=== PATIENT | female | born 1990 | race Caucasian/White ===

== ENCOUNTER 2017-07-09 17:17 | Outpatient (CLI) | payer OTHER ==
[2017-07-09 17:37] LABS: BASOPHILS % (AUTO) 0.6 %; EOSINOPHILS # (AUTO) 0.1 10^3/uL (0.0-0.7); EOSINOPHILS % (AUTO) 1.1 %; HCT - HEMATOCRIT 40.6 % (37.0-47.0); HGB - HEMOGLOBIN 13.5 g/dL (12.0-16.0); LYMPHOCYTES # (AUTO) 2.8 10^3/uL (1.5-3.5); LYMPHOCYTES % (AUTO) 33.7 %; MEAN CORPUSCULAR HEMOGLOBIN 29.3 pg (27.0-31.0); MEAN CORPUSCULAR HGB CONC 33.2 g/dL (32.0-36.0); MEAN CORPUSCULAR VOLUME 88.1 fL (81.0-99.0); MEAN PLATELET VOLUME 7.9 fL (7.9-10.8); MONOCYTES # (AUTO) 0.6 10^3/uL (0.0-1.0); MONOCYTES % (AUTO) 6.9 %; NEUTROPHILS # (AUTO) 4.8 10^3/uL (1.5-6.6); NEUTROPHILS % (AUTO) 57.7 %; RED BLOOD COUNT 4.61 10^6/uL (4.20-5.40); UNCORRECTED WHITE BLOOD COUNT 8.3 x10^3/uL; WHITE BLOOD COUNT 8.3 x10^3/uL (4.8-10.8)
== END 2017-07-09 17:18 | disposition home or self-care (01) ==
LOC: LAB 17:17
PROVIDERS: ATTEND Registered Nurse
DX: O02.1 Missed abortion (principal)
CPT/HCPCS: 36415; 84144; 84702; 85025; 86850; 86900; 86901

== ENCOUNTER 2017-07-10 18:23 | Observation (INO) | payer OTHER ==
[~2017-07-10 18:23] MED LIST: LIDOCAINE-MPF 2% 5 ML VIAL IM ONE; MIDAZOLAM 2 MG/2 ML VIAL IVP ONE; PROPOFOL 200 MG/20 ML VIAL IVP ONE; fentaNYL 100 MCG/2 ML VIAL IVP ONE
[2017-07-10] MEDS ORDERED: SODIUM CHLORIDE 0.9% 1,000 ML IV ONE ×6 (18:32→20:31)
[2017-07-10] MEDS ORDERED: ONDANSETRON 4 MG/2 ML VIAL IVP STA (18:33)
--- NOTE | 2017-07-10 18:33 | ED Physician Documentation ---
PD HPI FEMALE - Stated complaint Stated Complaint: FEMALE - History obtained from History obtained from: Patient, Family - History of Present Illness Timing - onset: Today Timing - duration: Hours Timing - details: Abrupt onset (she was seen by [facility] with early of 10 weeks by dates but U/S showing IUP of 6 weeks size without FHB, c/w iufd. Was given dose misoprostol today to induce cervical dilation and promote completion of miscarriage. She says she had onset of brisk vaginal bleeding about noon, soaking 1-2 pads hourly and feeling generally weak, nauseated, and some cramping pains. Talked with provider and referred to ED to meet with Dr. Duran for presumed D&C.) Associated symptoms: Pelvic pain, Vaginal bleeding. No: Fever, Vaginal discharge, Genital sore/lesion Contributing factors: (with IUFD in first trimester.) Similar symptoms before: Has not had sx before Recently seen: Clinic Review of Systems Constitutional: denies: Fever, Chills Nose: denies: Rhinorrhea / runny nose, Congestion Throat: denies: Sore throat Cardiac: denies: Chest pain / pressure Respiratory: denies: Dyspnea, Cough GI: reports: Abdominal Pain, Nausea. denies: Vomiting : reports: Vaginal bleeding. denies: Discharge PD PAST MEDICAL HISTORY - Past Medical History Cardiovascular: None Respiratory: None Neuro: None Endocrine/Autoimmune: None - Allergies Allergies/Adverse Reactions: Allergies Allergy/AdvReac Type Severity Reaction Status Date / Time No Known Drug Allergies Allergy Verified 07/10/17 18:46 - Social History Smoking Status: Never smoker PD ED PE NORMAL - Vitals Vital signs reviewed: Yes - General General: Alert and oriented X 3, Well developed/nourished, Other (appears pale, weak, and in some discomfort. ) - HEENT HEENT: Pharynx benign - Neck Neck: Supple, no meningeal sign, No adenopathy - Cardiac Cardiac: RRR (tachycardic), No murmur - Respiratory Respiratory: Clear bilaterally - Abdomen Abdomen: Normal bowel sounds, Soft, Non distended, No organomegaly, Other ( tender in lower abd suprapubic area. ) - Female Female : Deferred (to Dr. Duran) - Rectal Rectal: Deferred - Back Back: No CVA TTP - Derm Derm: Warm and dry. No: Normal color (pale) - Extremities Extremities: No tenderness to palpate, Normal ROM s pain Results - Vitals Vitals: Vital Signs - 24 hr 07/10/17 07/10/17 07/10/17 18:39 20:31 20:35 Temperature 36.7 C Heart Rate 97 Respiratory 18 Rate Blood Pressure 110/62 O2 Saturation 100 100 100 07/10/17 07/10/17 20:40 20:45 Temperature Heart Rate Respiratory Rate Blood Pressure O2 Saturation 100 97 Oxygen O2 Source Room air - Labs Labs: Laboratory Tests 07/10/17 07/10/17 07/10/17 18:35 18:35 18:35 WBC 8.5 RBC 4.57 Hgb 13.5 Hct 40.8 MCV 89.4 MCH 29.5 MCHC 33.0 RDW 13.3 Plt Count 210 MPV 8.1 Neut # 6.7 H Lymph # 1.3 L Harvey # 0.4 Eos # 0.1 Baso # 0.0 Absolute Nucleated RBC 0.00 Nucleated RBC % 0.0 Sodium 136 Potassium 3.4 L Chloride 100 L Carbon Dioxide 25 Anion Gap 11.0 BUN 13 Creatinine 0.7 Estimated GFR (MDRD) 100 Glucose 140 H Calcium 9.1 Total Bilirubin 0.8 AST 21 ALT 18 Alkaline Phosphatase 45 Total Protein 7.0 Albumin 4.4 Globulin 2.6 Albumin/Globulin Ratio 1.7 Lipase 26 Blood Type O POSITIVE Antibody Screen NEGATIVE Crossmatch IS Only See Detail PD MEDICAL DECISION MAKING - ED course Complexity details: reviewed results, considered differential (Patient appears weak and pale, presume from acute blood loss and some pain. Vitals are slightly tachy but adequate BP. ), d/w patient, d/w product safety consultant (Dr. Duran, [employer]) Departure - Departure Disposition: ED Transfer to [facility] Clinical Impression: Vaginal bleeding affecting early , IUFD (intrauterine ), Generalized weakness Condition: Stable Record reviewed to determine appropriate education?: Yes Discharge Date/Time: 07/10/17 19:41
[2017-07-10 18:48] LABS: BASOPHILS % (AUTO) 0.4 %; EOSINOPHILS # (AUTO) 0.1 10^3/uL (0.0-0.7); EOSINOPHILS % (AUTO) 0.7 %; HGB - HEMOGLOBIN 13.5 g/dL (12.0-16.0); LYMPHOCYTES # (AUTO) 1.3 10^3/uL (1.5-3.5); LYMPHOCYTES % (AUTO) 15.4 %; MEAN CORPUSCULAR HEMOGLOBIN 29.5 pg (27.0-31.0); MEAN CORPUSCULAR VOLUME 89.4 fL (81.0-99.0); MEAN PLATELET VOLUME 8.1 fL (7.9-10.8); MONOCYTES # (AUTO) 0.4 10^3/uL (0.0-1.0); MONOCYTES % (AUTO) 4.2 %; NEUTROPHILS # (AUTO) 6.7 10^3/uL (1.5-6.6); NEUTROPHILS % (AUTO) 79.3 %; PLT - PLATELET COUNT 210 10^3/uL (130-450); RED BLOOD COUNT 4.57 10^6/uL (4.20-5.40); RED CELL DISTRIBUTION WIDTH 13.3 % (12.0-15.0); WHITE BLOOD COUNT 8.5 x10^3/uL (4.8-10.8)
[2017-07-10] MEDS ORDERED: LACTATED RINGERS 1,000 ML IV ONE ×6 (18:51→21:30)
[2017-07-10 18:59] LABS: ALBUMIN 4.4 g/dL (3.2-5.5); ALBUMIN/GLOBULIN RATIO 1.7 (1.0-2.2); BILIRUBIN,TOTAL 0.8 mg/dL (0.2-1.0); CALCIUM 9.1 mg/dL (8.5-10.3); CREATININE 0.7 mg/dL (0.4-1.0)
[2017-07-10] MEDS ORDERED: TRANEXAMIC ACID 1,000 MG in SODIUM CHLORIDE 0.9% 100ML 100 ML IV STA (19:24)
[2017-07-10] MEDS ORDERED: PROPOFOL 200 MG/20 ML VIAL IVP ONE (19:42)
[2017-07-10] MEDS ORDERED: CARBOPROST TROMETHAMINE 250 MCG/ML AMP IM ONE (19:42)
[2017-07-10] MEDS ORDERED: LIDOCAINE-MPF 2% 5 ML VIAL IM ONE (19:42)
[2017-07-10] MEDS ORDERED: fentaNYL 100 MCG/2 ML VIAL IVP ONE (19:42)
[2017-07-10] MEDS ORDERED: TRANEXAMIC ACID 1,000 MG/10 ML VIAL IV ONE (19:42)
[2017-07-10] MEDS ORDERED: METHYLERGONOVINE 0.2 MG/ML AMP IVP ONE (19:42)
[2017-07-10] MEDS ORDERED: LIDOCAINE 1%-EPI 1:100000 20 ML MDV SUBQ ONE (20:05)
[2017-07-10] MEDS ORDERED: oxyCODONE 5 MG TABLET PO PRN (20:47)
[2017-07-10 21:00] LABS: HGB - HEMOGLOBIN 10.7 g/dL (12.0-16.0); MEAN CORPUSCULAR HEMOGLOBIN 29.2 pg (27.0-31.0); MEAN CORPUSCULAR VOLUME 88.7 fL (81.0-99.0); MEAN PLATELET VOLUME 8.1 fL (7.9-10.8); RED BLOOD COUNT 3.64 10^6/uL (4.20-5.40); RED CELL DISTRIBUTION WIDTH 13.2 % (12.0-15.0); WHITE BLOOD COUNT 10.6 x10^3/uL (4.8-10.8)
[2017-07-10] MEDS: ACETAMINOPHEN 500 MG TABLET PO SCH (21:58)
[2017-07-10] MEDS: LACTATED RINGERS 1,000 ML IV SCH (22:03)
[2017-07-11] MEDS: ACETAMINOPHEN 500 MG TABLET PO SCH (04:47)
[2017-07-11] MEDS: LACTATED RINGERS 1,000 ML IV SCH (04:51)
[2017-07-11 07:50] VITALS: BP 102/48
--- NOTE | 2017-07-11 08:59 | OPERATIVE REPORT ---
Operative Report - General Admit Date: 07/10/17 Procedure Date: 07/10/17 Planned Procedure: Sharp and suction D&C Pre-Op Diagnosis: incomplete AB, Hemorrage, anemia Procedure Performed: Sharp and Suction D&C Post Op Diagnosis: Same - Procedure Note Primary Surgeon: Jair Duran MD Anesthesia Provider: Glory Marion Anesthesia Technique: General ET tube Pathology: POC IV Fluids (mL): 1,500 Estimated Blood Loss (mL): 50 Complications: None
--- NOTE | 2017-07-11 09:03 | PROVIDER PROGRESS NOTE ---
Subjective - General Admit Date: 07/10/17 Procedure Date: 07/10/17 Post Op Days: 1 Procedure Performed: Sharp and suction D&C - Review of Systems General: positive: No symptoms (Pain 07/22). negative: Fever Pulmonary: positive: Other (sore throat) Cardiovascular: positive: No symptoms Genitourinary: positive: No symptoms Objective - Patient Data Reviewed Vital Signs: Yes Vital Signs: Vital Signs x48h Temp Pulse Resp BP Pulse Ox 07/11/17 07:49 36.9 C 81 19 102/48 L 97 07/11/17 04:52 36.7 C 72 18 100/45 L 100 Weight: Weight 07/09/17 07/10/17 07/11/17 23:59 23:59 23:59 Weight (kg) 61.235 kg Intake & Output: Intake and Output Totals x24h 07/09/17 07/10/17 07/11/17 23:59 23:59 23:59 Intake Total 2533.333 1188.333 Output Total 500 550 Balance 2033.333 638.333 - Lab Results Lab Results: 07/11/17 06:00 07/10/17 18:35 Other Lab Results: Lab Results x24hrs 07/11/17 07/10/17 Range/Units 06:00 20:55 WBC 10.6 (4.8-10.8) x10^3/uL RBC 3.64 L (4.20-5.40) 10^6/uL Hgb 9.6 L 10.7 L (12.0-16.0) g/dL Hct 32.3 L (37.0-47.0) % MCV 88.7 (81.0-99.0) fL MCH 29.2 (27.0-31.0) pg MCHC 33.0 (32.0-36.0) g/dL RDW 13.2 (12.0-15.0) % Plt Count 165 (130-450) 10^3/uL MPV 8.1 (7.9-10.8) fL - Current Medications Current Medications: Current Medications Generic Name Dose Route Start Last Admin Trade Name Freq PRN Reason Stop Dose Admin Acetaminophen 1,000 mg 07/10/17 21:00 07/11/17 04:47 Tylenol PO 1,000 mg Q8H ULI Administration Lactated Ringer's 1,000 mls @ 100 mls/hr 07/10/17 21:00 07/11/17 07:32 Lr IV 0 mls/hr .Q10H ULI Infusion - Physical Exam General Appearance: positive: No acute distress, Alert Respiratory: positive: Chest non-tender, No respiratory distress, Breath sounds nml. negative: Wheezes, Rales Cardiovascular: positive: Regular rate & rhythm, No murmur Abdomen: positive: Non-tender, Nml bowel sounds, No distention. negative: Tenderness, Guarding Back: positive: Nml inspection. negative: CVA tenderness (R), CVA tenderness (L ) Extremities: negative: Calf tenderness, Derrick's sign/cords Neurologic/Psychiatric: positive: Oriented x3 Impression/Plan - Problem List Problem List: S/P D&C for incomplete Ab Less anemia than expected. Doing well discussed S/S of infection, Bleeding Call for Bleeding or infection. Pt may take own supply of Motrin if needed. Continue with PNV RTC 1-2 weeks
--- NOTE | 2017-07-11 09:08 | Discharge Plan ---
Discharge Plan Disposition: 01 Home, Self Care Condition: Good Diet: Regular Activity Restrictions: Pelvic rest 4 weeks Shower Restrictions: No Driving Restrictions: No Weight Bearing: Full Weight No Smoking: If you smoke, Please STOP! Call for help. Follow-up with: Jihan Dawson MD [Primary Care Provider] -
--- NOTE | 2017-07-12 22:25 | PREOP HISTORY & PHYSICAL ---
DATE OF SERVICE: 07/10/2017 Physician: Jair Duran MD PATIENT IDENTIFICATION: The patient is a 27-year-old G4, P3 female, who is 9.5 weeks from LMP. CHIEF COMPLAINT: Incomplete . DATE OF ADMISSION AND SURGERY: 07/10/2017 HISTORY OF PRESENT ILLNESS: The patient had an ultrasound yesterday, which showed a 6-week size gestation without any cardiac activity. She was offered options to include those of D and C, as well as Cytotec. She elects to take Cytotec, which she took at roughly 8:30 this morning. She developed bleeding at roughly 1330. She will change a pad on an hourly basis, passing clot and needing to change a pad because these were saturated. She denies any passage of tissue. Later on this evening, she developed lightheadedness with loss of vision as well as hearing, but not loss of consciousness. She also became somewhat diaphoretic. For this reason, she was brought to the ED for evaluation. PAST MEDICAL HISTORY: The patient denies any hypertensive, diabetic or cardiac disease. She has a possible history of irritable bowel syndrome. PAST SURGICAL HISTORY: Colonoscopy at 17 years of age. ALLERGIES: NONE KNOWN. CURRENT MEDICATIONS: 1. Motrin. 2. Tylenol. 3. Cytotec. 4. Zofran. HABITS: The patient denies use of alcohol, tobacco or street drugs. SOCIAL HISTORY: The patient is and lives with spouse and children. She works as a homemaker. OBSTETRICAL HISTORY: Positive for 3 live childbirths. She is currently in the process of having a miscarriage. PHYSICAL EXAMINATION: GENERAL: The patient is a well-developed, well-nourished white female. She appears pale in appearance upon admission. VITAL SIGNS: A pulse of 90 with a blood pressure 110/60, saturating 100%, respirations initially 27. She currently now has a blood pressure of 111/62 with respirations of 19. HEENT: Pupils are equal, round. Extraocular muscles are intact. Mouth is clear. HEART: Regular rate and rhythm without murmurs. RESPIRATORY: Lung prado are clear without rales or wheezes. ABDOMEN: Scaphoid, without evidence of any tenderness. PELVIC: Speculum examination shows a vaginal vault that is filled with blood and clot. There was a single amount of tissue that was removed from the cervix with a ring forceps. The bleeding at this point appears to be continuing. PERIPHERY: She is showing some difficulty initially with poor capillary filling. SKIN: Pale. LABORATORY DATA: White count is 8.5. Hemoglobin is 13.5. Hematocrit is [TIME: 03:02] Platelets are 210. ASSESSMENT AND PLAN: 1. A 27-year-old G4, P3, who is in the process of miscarrying. 2. Incomplete . 3. Hemorrhage. 4. Hypovolemia. PLAN: Will perform sharp and suction D and C. Risks and benefits have been explained to the patient including those, but not limited to bleeding, infection, injury to pelvic organs , which include the uterus, tubes, ovaries, bowel, bladder, and ureters. The patient at this point agrees with sharp and suction D and C. She may need blood transfused at this particular time. TD: 07/10/2017 21:47 MTDD
--- NOTE | 2017-07-17 08:51 | OPERATIVE REPORT ---
DATE OF SERVICE: 07/10/2017 Physician: Jair Duran MD DATE OF SURGERY: 07/10/2017 PREOPERATIVE DIAGNOSIS: Incomplete with anemia and hemorrhage. POSTOPERATIVE DIAGNOSIS: Incomplete with anemia and hemorrhage. NAME OF PROCEDURE: Sharp and suction dilation and curettage. SURGEON: Jair Duran MD ANESTHESIA: General via endotracheal tube. ANESTHESIOLOGIST: Glory Marion CRNA ESTIMATED BLOOD LOSS: 50 mL INTRAVENOUS FLUIDS: 1500 mL COMPLICATIONS: None. FINDINGS: Uterus sounded to roughly 8 cm in length. There was a moderate amount of tissue, which wa s easily removed. PROCEDURE: Following adequate endotracheal anesthesia, the patient was placed in the dorsal lithotom y position in [facility]. At this point, pelvic examination under anesthesia was performed. A weighted speculum was placed in the vagina. The cervix was visualized, grasped with a single-tooth tenaculum. The cervix was already completely dilated, so an 8 mm suction curette was placed. Suction was applied, a t which time it reached its normal at 60 mmHg. The curette was rotated and a moderate amount of tissue was r emoved. The curette was withdrawn gradually as it was being rotated. A second pass was made, which no furthe r tissue was obtained. The endometrial cavity was then sharply curetted in all 4 quadrants. No further tissu e was obtained. The curette was once more placed, and once again no more tissue was removed. The cervix w as released from the single-tooth tenaculum. There was some bleeding from the tenaculum sites. These r esponded to direct pressure. The patient tolerated the procedure well and was taken to the recovery room in s table condition. Sponge and needle counts were correct. TD: 07/17/2017 09:40
== END 2017-07-11 09:25 | disposition home or self-care (01) ==
LOC: ED 18:23 → SDS 19:23 → OBS 20:47
PROVIDERS: ADMIT Obstetrics & Gynecology; ATTEND Obstetrics & Gynecology
PROC: 10D17ZZ Extraction of Products of Conception, Retained, Via Natural or Artificial Opening (ICD-10-PCS; principal; 2017-07-10 19:30)
DX: O03.1 Delayed or excessive hemorrhage following incomplete spontaneous abortion (principal); O03.39 Incomplete spontaneous abortion with other complications; D64.9 Anemia, unspecified
CPT/HCPCS: 36415; 59812; 80053; 83690; 85018; 85025; 85027; 86850; 86900; 86901; 86920; 96374; 99218; 99283; 99284; A9270; J7120

== ENCOUNTER 2018-02-18 12:45 | Outpatient (CLI) | payer OTHER ==
--- NOTE | 2018-02-18 16:25 | Ultrasound Report ---
Procedure Date: 02/18/2018 Accession Number: [id number] / [id number] Procedure: US - OB Detailed Eval CPT Code: FULL RESULT: EXAM: OB Detailed Eval DATE: 02/18/2018 4:09 PM CLINICAL HISTORY: ENCTR FOR SUPRVSN OF NORMAL , 2ND TRIMEST TECHNIQUE: Real-time scanning was performed with equal opportunity representative static images obtained. COMPARISON: None LAST MENSTRUAL PERIOD: 10/01/2017 Clinical Age: 20 weeks 0 days US Age: 20 weeks 1 days EFW Hadlock: 347 grams EFW % Hadlock: % Heart Rate: 135 bpm EDC: 07/08/2018 US EDC: 07/07/2018 BPD Hadlock: 20 weeks 2 days; Mean mm 48 HC Hadlock: 20 weeks 2 days; Mean mm 180 AC Hadlock: 20 weeks 6 days; Mean mm 31 FL Hadlock: 19 weeks 3 days; Mean mm 31 Presentation: Cephalic Placental Location: Posterior Cervical Length: cm Amniotic Fluid: ROCK Subjectively normal cm; MVP 4.2 cm FINDINGS: A single live intrauterine gestation in cephalic presentation with a posterior placenta without evidence of previa and a three-vessel centrally originating cord is identified. The examination is limited in that the following structures were not adequately visualized due to size and position: Profile including nasal bone and the coronal face with nose and lips, cardiac situs, four-chamber view of the heart, left ventricular and right ventricular outflow tracts. Stomach and situs. The following anatomic structures were visualized and appear normal: The intracranial contents, including the ventricles and posterior fossa; the spine; diaphragm; the abdominal contents, including the stomach, the bilateral kidneys, and urinary bladder, as well as a normal 3-vessel cord insertion; 4 limbs. IMPRESSION: Single live intrauterine gestation with an estimated gestational age of 20 weeks and 1 day sonographically. The examination was limited due to size and position. The patient may return for repeat sonography for completion anatomy survey.
== END 2018-02-18 12:46 | disposition home or self-care (01) ==
LOC: DI 12:45
PROVIDERS: ATTEND Registered Nurse
DX: Z34.82 Encounter for supervision of other normal pregnancy, second trimester (principal)
CPT/HCPCS: 76811

== ENCOUNTER 2018-03-04 10:47 | Outpatient (CLI) | payer OTHER ==
--- NOTE | 2018-03-04 15:07 | Ultrasound Report ---
Procedure Date: 03/04/2018 Accession Number: [id number] / [id number] Procedure: US - OB F/U or Repeat CPT Code: FULL RESULT: EXAM: COMPLETE OBSTETRICAL ULTRASOUND EXAM DATE: 03/04/2018 11:53 AM. CLINICAL HISTORY: Follow-up limited anatomic survey. profile, nose and lips, cardiac situs, cardiac anatomy, and stomach not previously well seen. COMPARISON: 02/18/2018. TECHNIQUE: Real-time sonographic evaluation of the fetus performed by the disease case manager rn. Multiple ambulatory service representative static images were saved for review. DATING: Established EGA weeks/days with TOYIN based on source of assigned dating. EGA weeks/days with TOYIN based on LMP/prior ultrasound/other. EGA weeks/days with TOYIN based on the current ultrasound. GENERAL EVALUATION Potter . Cardiac activity: 154 bpm. movement: Present. Presentation: Variable. Placenta: Posterior position. No evidence for previa. Prominent placental poole adjacent to the cord insertion. Umbilical cord: 3 vessel cord. Central placental cord origin. Amniotic fluid: Subjectively normal. MVP 4.5 cm. BIOMETRY Not performed today ANATOMY profile, coronal face including nose and lips, four-chamber heart and outflow tracts, stomach, and situs well seen today. No abnormality identified. MATERNAL STRUCTURES Uterus: Unremarkable. Cervix: Long and closed. Transabdominal length 4.1 cm. Right ovary/adnexa: Unremarkable. Left ovary/adnexa: Unremarkable. Free fluid: None. IMPRESSION: 1. Potter intrauterine without anatomic abnormalities detected at this time. RADIA
== END 2018-03-04 10:48 | disposition home or self-care (01) ==
LOC: DI 10:47
PROVIDERS: ATTEND Registered Nurse
DX: Z36.9 Encounter for antenatal screening, unspecified (principal)
CPT/HCPCS: 76816

== ENCOUNTER 2018-04-15 14:47 | Outpatient (CLI) | payer OTHER ==
[2018-04-15 16:27] LABS: BILIRUBIN,URINE NEGATIVE (NEGATIVE); GLUCOSE, URINE (UA) NEGATIVE (NEGATIVE); KETONES,URINE (UA) NEGATIVE (NEGATIVE); LEUKOCYTE ESTERASE, URINE NEGATIVE (NEGATIVE); NITRITE,URINE NEGATIVE (NEGATIVE); OCCULT BLOOD,URINE NEGATIVE (NEGATIVE); PROTEIN,URINE NEGATIVE (NEGATIVE); UROBILINOGEN,URINE 0.2 (NORMAL) E.U./dL (NORMAL)
[2018-04-15 16:30] LABS: BASOPHILS % (AUTO) 0.3 %; EOSINOPHILS # (AUTO) 0.1 10^3/uL (0.0-0.7); EOSINOPHILS % (AUTO) 0.7 %; HGB - HEMOGLOBIN 12.7 g/dL (12.0-16.0); LYMPHOCYTES # (AUTO) 1.7 10^3/uL (1.5-3.5); LYMPHOCYTES % (AUTO) 16.8 %; MEAN CORPUSCULAR HEMOGLOBIN 31.9 pg (27.0-31.0); MEAN CORPUSCULAR HGB CONC 35.7 g/dL (32.0-36.0); MEAN CORPUSCULAR VOLUME 89.4 fL (81.0-99.0); MEAN PLATELET VOLUME 8.1 fL (7.9-10.8); MONOCYTES # (AUTO) 0.5 10^3/uL (0.0-1.0); MONOCYTES % (AUTO) 4.9 %; NEUTROPHILS # (AUTO) 7.7 10^3/uL (1.5-6.6); NEUTROPHILS % (AUTO) 77.3 %; PLT - PLATELET COUNT 192 10^3/uL (130-450); RED BLOOD COUNT 3.99 10^6/uL (4.20-5.40); RED CELL DISTRIBUTION WIDTH 12.8 % (12.0-15.0)
[2018-04-15 16:38] LABS: CLARITY,URINE CLEAR (CLEAR)
[2018-04-15 16:39] LABS: BACTERIA,URINE None Seen /HPF (None Seen); RBC,URINE None Seen /HPF (0-5); SQUAMOUS EPITHELIAL CELL,UR RARE Squamous (<= Few)
[2018-04-16 11:53] LABS: HEPATITIS C ANTIBODY NON-REACTIVE (NON-REACTIVE)
[2018-04-16 12:17] LABS: HEPATITIS B SURFACE ANTIGEN NON-REACTIVE (NON-REACTIVE)
[2018-04-16 15:06] LABS: HIV AG/AB 4TH GEN NON-REACTIVE (NON-REACTIVE)
== END 2018-04-15 14:48 | disposition home or self-care (01) ==
LOC: LAB 14:47
PROVIDERS: ATTEND Nurse Practitioner Obstetrics & Gynecology
DX: Z36.9 Encounter for antenatal screening, unspecified (principal)
CPT/HCPCS: 36415; 81001; 81599; 82950; 85025; 86762; 86803; 86850; 86900; 86901; 87340; 87389

== ENCOUNTER 2018-06-16 08:00 | Outpatient (CLI) | payer OTHER | END 2018-06-16 23:59 | disposition home or self-care (01) | LOC: LAB.R 08:00 | PROVIDERS: ATTEND Nurse Practitioner Obstetrics & Gynecology | DX: Z34.90 Encounter for supervision of normal pregnancy, unspecified, unspecified trimester (principal) | CPT/HCPCS: 87081 ==

== ENCOUNTER 2018-07-01 08:57 | Inpatient (IN) | payer OTHER ==
[~2018-07-01 08:57] MED LIST changes: +LACTATED RINGERS 1,000 ML IV SCH; -LIDOCAINE-MPF 2% 5 ML VIAL IM ONE; -MIDAZOLAM 2 MG/2 ML VIAL IVP ONE; +ONDANSETRON 4 MG/2 ML VIAL IVP PRN; -PROPOFOL 200 MG/20 ML VIAL IVP ONE; +SODIUM CHLORIDE FLUSH 0.9% 10 ML SYRINGE IVP PRN; +SODIUM CHLORIDE FLUSH 0.9% 10 ML SYRINGE IVP SCH; -fentaNYL 100 MCG/2 ML VIAL IVP ONE
[2018-07-01] MEDS ORDERED: LACTATED RINGERS 1,000 ML IV ONE (09:57)
[2018-07-01] MEDS: miSOPROStol 100 MCG TABLET BC SCH ×4 (10:08→23:29)
[2018-07-01 11:00] LABS: BASOPHILS # (AUTO) 0.1 10^3/uL (0.0-0.1); BASOPHILS % (AUTO) 0.6 %; EOSINOPHILS # (AUTO) 0.1 10^3/uL (0.0-0.7); EOSINOPHILS % (AUTO) 0.6 %; HGB - HEMOGLOBIN 12.6 g/dL (12.0-16.0); LYMPHOCYTES # (AUTO) 1.6 10^3/uL (1.5-3.5); LYMPHOCYTES % (AUTO) 17.4 %; MEAN CORPUSCULAR HEMOGLOBIN 30.1 pg (27.0-31.0); MEAN CORPUSCULAR HGB CONC 34.7 g/dL (32.0-36.0); MEAN CORPUSCULAR VOLUME 86.8 fL (81.0-99.0); MEAN PLATELET VOLUME 8.4 fL (7.9-10.8); MONOCYTES # (AUTO) 0.5 10^3/uL (0.0-1.0); NEUTROPHILS # (AUTO) 6.9 10^3/uL (1.5-6.6); NEUTROPHILS % (AUTO) 75.4 %; PLT - PLATELET COUNT 183 10^3/uL (130-450); RED BLOOD COUNT 4.19 10^6/uL (4.20-5.40); RED CELL DISTRIBUTION WIDTH 12.9 % (12.0-15.0); WHITE BLOOD COUNT 9.1 x10^3/uL (4.8-10.8)
--- NOTE | 2018-07-01 11:32 | HISTORY & PHYSICAL EXAMINATION ---
Admit History - Visit Reason Visit Reason: Other (elective induction of labor @ 39 weeks' gestation) - : 5 Parity: 3 Premature: 0 Ectopic: 0 : 1 Care: positive: [facility] Risk/History: positive: None Complications This : positive: None Smoking Status: Never smoker - Mother's Labs Mother's Blood Type: positive: O Mother's RH: positive: Positive GBS: positive: Group B Step Negative Rubella Status: positive: Immune Meds/Allgy - Allergies Allergies/Adverse Reactions: Allergies Allergy/AdvReac Type Severity Reaction Status Date / Time No Known Drug Allergies Allergy Verified 07/10/17 18:46 Review of Systems - Constitutional Constitutional: reports: Fatigue. denies: Fever, Chills - Eyes Eyes: denies: Blurred vision, Spots in vision, Dipolpia - Cardiovascular Cariovascular: denies: Irregular heart rate, Palpitations, Chest pain, Edema - Respiratory Respiratory: reports: SOB with exertion. denies: Cough, Wheezing, SOB at rest - Gastrointestinal Gastrointestinal: reports: Reflux/heartburn. denies: Abdominal pain, Constipation, Diarrhea, Change in bowel habits, Nausea, Vomiting - Genitourinary Genitourinary: reports: Frequency, Urgency. denies: Dysuria - Musculoskeletal Musculoskeletal: reports: Back pain, Other (pubic symphyseal pain). denies: Muscle pain, Muscle aches - Integumentary Integumentary: denies: Rash - Neurological Neurological: denies: General weakness, Focal weakness, Headache, Dizziness, Numbness - Psychiatric Psychiatric: denies: Depression, Anxiety - All Other Systems All Other Systems: reports: Reviewed and negative Physical - Abdominal Exam Vital Signs: Temp Pulse Resp BP Pulse Ox 36.7 C 100 18 128/69 97 07/01/18 09:00 07/01/18 09:00 07/01/18 09:00 07/01/18 09:00 07/01/18 09:00 Contraction Frequency (min/apart): 3 Contraction Intensity: positive: Mild Uterine Resting Tone: positive: Soft - Monitoring Heart Rate Baseline: 150 Strip Review: positive: Category I - Presentation Presentation: positive: Vertex - Vaginal Exam Membranes: positive: Membranes intact Dilation (in cm): 3 Effacement (%): 80 Station: positive: -3 Cervical Position: positive: Midposition (per Rita Itzel, CNM) - Speculum Exam Findings: negative: Gross leak - Other Notes Labor Progress Note/Additional Text: Pablo Ricketts is a 28 y/o @ 39 weeks' gestation by first trimester US who received consistent care throughout the course of her . Her was complicated only by musculoskeletal concerns, specifically severe pubic symphyseal dysfunction, requiring PT intervention & responsive to the same. Her labs were all unremarkable & she screened negative for GBS at 36 weeks' gestation. She presents today for misoprostol induction of labor, as discussed w/ & scheduled by Rita Robbins CNM, and full PARQ is held again. Informed consent was previously obtained. PMH: Shoulder pain, nerve impingement, gingivitis PSH: D&C s/p SAB w/ excessive EBL s/p misoprostol management 2017 OBHx: 2011, 2013, 2014 FTSVD w/o complication, 1st trimester missed AB 2017 w/ D&C secondary to excessive EBL GYNhx: denies hx STI, NILM pap Famhx: Noncontributory SocHx: no ETOH/drugs/tobacco, SAHM, to Ramírez Ricketts, no DV PE: GEN: AAOx3, NAD WA gravid female HEENT: grossly normocephalic, atraumatic RESP: cta b/l t/o CARDIAC: rrr [id number], no murmur ABD: gravid, NT : deferred MS: FROM t/o, no edema, no deformity SKIN: c/d/i, no lesion NEURO: no focal deficit PSYCH: normal mood & affect, pleasantly conversant Plan for Labor - Plan For Labor I expect patient to be DC'd or transferred within 96 hours.: Yes Plan for Labor: 1. Admit to observation for preinduction cervical ripening w/ misoprostol 50mcg BC q 4 hours 2. NO2 per pt request, reviewed all pain management modalities 3. Reassess cervical status w/ clear clinical indication 4. Reviewed labor physiology, anticipatory guidace 5. Reviewed plan of care w/ pt, partner & bedside RN; all in agreement, without concerns.
[2018-07-02] MEDS ORDERED: OXYTOCIN/SODIUM CHLORIDE 500 ML IV ONE (00:01)
--- NOTE | 2018-07-02 09:27 | PROVIDER PROGRESS NOTE ---
Labor Progress Note - Uterine Monitoring Uterine Monitoring Mode: positive: External toco Contraction Frequency (min/apart): 2-4 Contraction Intensity: positive: Moderate to strong Uterine Resting Tone: positive: Soft - Monitoring Monitor Mode: positive: External ultrasound Heart Rate Baseline: 150 Heart Rate Variability: positive: Moderate (6-25 bmp) Accelerations: positive: Present, 15x15 Decelerations: positive: Early Strip Review: positive: Category I - Vaginal Exam Dilation (in cm): 6 Effacement (%): 60 Station: -2 Cervical Position: Anterior (soft) - Labor Progress Note Labor Progress Note/Additional Text: S: Pablo is uncomfortable & frustrated, desires expedition of the labor process, requests AROM for augmentation. Using hydrotherapy w/ some effect. , Ramírez, is present @ the bedside & is involved & supportive. O: AAOx3, uncomfortable, gravid female VSS, afebrile EFM: BL 150bpm, + accels, early decels to ralph in 130s, moderate variability TOCO: UCs q 2-4 minutes, palpably strong SVE: 6/60/-2, AROM for copious CAF s/p PARQ A: 28 y/o @ 39w1d by early 1st trimester US, elective IOL s/p effective prostaglandin cervical ripening w/ 3 total doses of 50mcg misoprostol buccally over a period of 17 hours FHTs cat I GBS negative CAF Adequate pain control w/ hydotherapy & intermittent self-administered NO2 usage; desires delivery w/o epidural Active labor P: 1. Reviewed pain management modalities 2. Reviewed optimal maternal positioning to facilitate descent 3. Reassess cervical status x4 hours, earlier PRN 4. Anticipate 5. Reviewed plan of care w/ pt, partner & RN @ bedside; all in agreement, without concerns.
[2018-07-02] MEDS ORDERED: HYDROCORTISONE/PRAMOXINE 10 GM PR PRN (10:01)
[2018-07-02] MEDS ORDERED: HYDROCORTISONE 1% CREAM 28 GM TUBE PR PRN (10:01)
[2018-07-02] MEDS ORDERED: WITCH HAZEL/GLYCERIN 1 EACH MED..PAD TOP PRN (10:01)
--- NOTE | 2018-07-02 10:10 | DELIVERY NOTE ---
Delivery Note - Labor Labor: positive: Augmented by ARM, Other - Delivery Method Delivery Method: positive: Spontaneous vaginal delivery - Cervical Ripening Method Cervical Ripening Method: positive: Misoprostil (x3 buccal doses of 50mcg over a period of 17 hours) - Presentation Presentation: positive: Vertex, REESE - right occiput anterior - Nuchal Cord Nuchal Cord: positive: None - Anesthetic Anesthetic Type: - Amniotic Fluid Description Amniotic Fluid Description: positive: Clear - Episiotomy Type Episiotomy Type: positive: None - Laceration Laceration: positive: 1st degree, Perineal (pt declines repair) - Delivery Outcome Delivery Outcome: positive: Livebirth - [place]: positive: Placed in direct skin contact with mother, Stimulated, [place] used sex: positive: Female - Cord Cord: positive: 3 vessels - Placenta Placenta: positive: Intact, Spontaneous - Estimated Blood Loss Estimated Blood Loss (in cc): 200 - Post Delivery Events Post Delivery Events: positive: No post delivery events - Delivery Comments (Free Text/Narrative) Delivery Comments (Free Text/Narrative): Pablo Ricketts is a 28 y/o [id number] who presented for elective IOL @ 39 weeks' gestation. She had a that was complicated only by pubic symphyseal dysfunction, which was responsive to PT interventions. She received 3 total doses of buccal misoprostol, 50mcg each, over a period of 17 hours & progressed to 6cm dilatation, at which point she requested AROM & underwent AROM @ 0900 for copious CAF. She then progressed rapidly & spontaneously to complete & @ 0936, for a total first stage duration of 6 hours, 6 minutes. She pushed w/ spontaneous urge to viable female in REESE position over a 1st degree perineal laceration at 0938, for a total 2nd stage duration of 2minutes. FHTs monitored electronically t/o cervical ripening, first stage & second stage & consistently cat I t/o. vigorous w/ spontaneous, lusty cry. Placed to maternal abd for drying/stim. Delayed cord clamping until cessation of pulsation, then cord clamped x2 by CNM, cut by FOB. 3VC noted, cord blood obtained. Active management of the 3rd stage w/ Pitocin in IV fluids. Placenta del spontaneously & intact, Jan, @ 0950, for a total 3rd stage duration of 12 minutes. FF @ U. Vagina & perineum inspected & shallow 1st degree introital laceration noted; pt adamantly declines repair. EBL 200mL. Mother & stable, apgars 8/9, weight pending. Plans to breastfeed & has had 3 previously successful experiences, infant nuzzling @ breast w/in 15 minutes of delivery.
[2018-07-02] MEDS: ACETAMINOPHEN 500 MG TABLET PO SCH ×2 (10:25→18:10)
[2018-07-02] MEDS: CELECOXIB 100 MG CAPSULE PO SCH ×2 (10:26→23:08)
[2018-07-02] MEDS: DOCUSATE SODIUM 100 MG CAPSULE PO SCH (23:08)
[2018-07-03] MEDS: ACETAMINOPHEN 500 MG TABLET PO SCH (02:41)
[2018-07-03] MEDS: DOCUSATE SODIUM 100 MG CAPSULE PO SCH (08:46)
[2018-07-03] MEDS: CELECOXIB 100 MG CAPSULE PO SCH (08:46)
[2018-07-03 08:54] VITALS: BP 106/58
--- NOTE | 2018-07-03 10:30 | Discharge Plan ---
Discharge Plan Disposition: 01 Home, Self Care Condition: Good Diet: Regular Activity Restrictions: pelvic rest x6 weeks Shower Restrictions: No Driving Restrictions: No Weight Bearing: Full Weight Instruction Topics: Vaginal After, Breastfeed How To, Exercises Kegel Additional Instructions or Follow Up instructions: x3 weeks in outpatient clinic w/ John Meier CNM No Smoking: If you smoke, Please STOP! Call for help. Follow-up with: John Meier CNM, [employer] [Provider Admit Priv/Credential] -
--- NOTE | 2018-07-03 10:32 | DISCHARGE SUMMARY ---
"Discharge Summary Admit Date: 07/01/18 Discharge Date: 07/03/18 Discharging Provider: RENEE Code Status: Attempt Resuscitation Condition at Discharge: Good Discharge Disposition: 01 Home, Self Care Discharge Facility Name: [facility] - DIAGNOSES Admission Diagnoses: 39 WEEKS GESTATION Discharge Diagnoses with Status of Each Condition: - HPI History of Present Illness: Pablo Ricketts is a 28 y/o [id number] who presented for elective IOL per pt request @ 39 weeks' gestation. She received 3 buccal doses of 50mcg misoprostol & progressed from there to active labor. She underwent AROM for copious CAF @ 6cm dilatation & shortly thereafter delivered a viable female over a 1st degree perineal repair for which she declined repair. She did not have any complic ations. - CONSULTS | PROCEDURES Procedures: misoprostol induction of labor AROM - HOSPITAL COURSE Hospital Course: , Pablo is ambulating & voiding w/o difficulty. She is passing flatus & tolerating a regular diet. She has adequate pain control w/o opioid analgesia & reports minimal vaginal bleeding. She is exclusively w/o difficulty & reports 3 previously successful experiences. She is not intending to return to work & reports excellent social support. She denies a hx of pp depression. She is able to fully articulate pp warning s/sx, including pp depression s/sx, and pp aftercare instructions. She is ready to leave the hospital. - ALLERGIES Allergies/Adverse Reactions: Allergies Allergy/AdvReac Type Severity Reaction Status Date / Time No Known Drug Allergies Allergy Verified 07/10/17 18:46 - MEDICATIONS Home Medications: Ambulatory Orders Medication Instructions Recorded Confirmed Witch Judith/Glycerin [Tucks] 1 each TOP QID PRN med..pad 07/03/18 - PHYSICAL EXAM AT DISCHARGE General Appearance: positive: No acute distress, Alert Eyes Bilateral: positive: Normal inspection, PERRL, EOMI Respiratory: positive: Chest non-tender, No respiratory distress, Breath sounds nml Cardiovascular: positive: Regular rate & rhythm, No murmur, No gallop, Irregularly irregular Abdomen: positive: Non-tender, No distention, Other (3 FB diastasis; FF U-1) Skin: positive: Color nml, No rash, Warm Extremities: positive: Non-tender, Full ROM, Nml appearance, No pedal edema. negative: Calf tenderness, Derrick's sign/cords Neurologic/Psychiatric: positive: Oriented x3, CN's nml (2-12), Motor nml, Sensation nml, Mood/affect nml - LABS Result Diagrams: 07/01/18 09:50 - FOLLOW UP Follow Up: x3 weeks in outpt clinic, earlier PRN - TIME SPENT Time Spent in Discharge (Minutes): 20"
--- NOTE | 2018-07-03 14:24 | Labor Flowsheet ---
Labor Flowsheet Datetime Report Generated by CPN: 07/03/2018 14:23 Datetime: 07/03/2018 08:27 VITAL SIGNS NBP Sys/Thais/Mean (mmHg): 106 : 58 : 70 Pulse: 72 Datetime: 07/02/2018 09:58 Stage of : Recovery Datetime: 07/02/2018 09:38 UTERINE ACTIVITY Monitor Mode: External Frequency (min): 1.5-4 Quality: Strong Duration (sec): 70-90 Pattern: Normal: <= 5 Contractions in 10 Minutes Resting Tone (Palpate): Relaxed Comments: pushing Datetime: 07/02/2018 09:15 ASSESSMENT A Monitor Mode: External US FHR Baseline Rate : 150 Variability: Moderate 6-25 bpm Accelerations: 15X15 Decelerations: Variable Category: Category II Datetime: 07/02/2018 09:03 Temperature (C): 36.9 LaborFlag: Labor Datetime: 07/02/2018 09:02 VAGINAL EXAM Dilatation (cm): 6.0 Effacement (%): 50 Station: -2 Exam by: Milzuleikaosa CNM Membranes Rupture Method: Artificial Amniotic Fluid Color: Clear Amniotic Fluid Amount: Copious Amniotic Fluid Odor: Normal Cervix, Consistency: Soft Cervix, Position: Anterior Datetime: 07/02/2018 08:56 Provider Reviewed Strip: Yes COMMUNICATION Communication: Provider at Bedside Provider Notified (Name): Milagrosa CNM Notification Reason: Status Update; Labor Status Communication Comments: CNM at bedside, SVE, AROM Datetime: 07/02/2018 08:33 I/O Interventions: Up to BR Datetime: 07/02/2018 07:08 PAIN Pain Scale: 0 Pain Presence: None/Denies Pain Coping: Sleeping Datetime: 07/02/2018 07:00 Contraction Comments: coupleting noted Datetime: 07/02/2018 06:45 Patient Position/Activity: Left Lateral; Supine Patient Care Comments: Laying in bed Datetime: 07/02/2018 06:30 Pain Type: Contraction Pain Goal: 5 Pain Relief Measures: Comfort Measures Datetime: 07/02/2018 06:29 Monitor Interventions for FHR: Ultrasound Adjusted Datetime: 07/02/2018 05:58 Pain Assessment Comments: Pt out of bath, desires to walk in hallway. Datetime: 07/02/2018 04:33 Comfort Measures: Breathing/Relaxation; Hot Shower/Tub/Spa; Family Support Datetime: 07/02/2018 03:30 Membrane Status: Intact MATERNAL ASSESSMENT Level of Consciousness: Fully Conscious DTR's/Clonus: DTRs 2+; No Clonus Headache: Denies Nausea/Vomiting: Denies RUQ Epigastric Pain: Denies Hygiene: Complete Bath Datetime: 07/01/2018 23:14 SpO2 (%): 100 MEDICATIONS Cervical Ripening Agents: Cytotec @ 50 Datetime: 07/01/2018 21:17 TEACHING Instructional Method: Verbal Plan of Care: Plan of Care Discussed Teaching Comments: Talked with pt about POC explained ctx pattern; pt wishes to hold off on next do se of cytotec to rest unless ctx pattern spaces out Datetime: 07/01/2018 19:40 Vaginal Bleeding: None Breath Sounds, Left: Clear and Equal Breath Sounds, Right: Clear and Equal PATIENT CARE IV/Blood Work: IV Saline Locked Labor/Induction: Labor Stages; Cervical Ripening Pain Management: Pain Scale/Goals Medications: Cervical Ripening Related: Activity and Rest Datetime: 07/01/2018 19:00 R Baseline Changes: No Baseline Change Datetime: 07/01/2018 16:15 Medication Comments: given buccal
== END 2018-07-03 13:15 | disposition home or self-care (01) | DRG 807 ==
LOC: WFO 08:57 → FBP 08:58 → WFO 08:59 → OBSVTOIN 07-02 03:30
PROVIDERS: ADMIT Nurse Practitioner Obstetrics & Gynecology; ATTEND Registered Nurse
PROC: 10E0XZZ Delivery of Products of Conception, External Approach (ICD-10-PCS; principal; 2018-07-02)
PROC: 10907ZC Drainage of Amniotic Fluid, Therapeutic from Products of Conception, Via Natural or Artificial Opening (ICD-10-PCS; 2018-07-02)
DX: O70.0 First degree perineal laceration during delivery (principal); Z37.0 Single live birth; Z3A.39 39 weeks gestation of pregnancy
CPT/HCPCS: 85025

== ENCOUNTER 2020-08-02 08:00 | Outpatient (CLI) | payer BC, OTHER ==
[2020-08-02 12:45] LABS: MUDS CUTOFF CONCENTRATIONS CUTOFF CONC BELOW:
[2020-08-02 13:08] LABS: BILIRUBIN,URINE NEGATIVE (NEGATIVE); GLUCOSE, URINE (UA) NEGATIVE (NEGATIVE); KETONES,URINE (UA) NEGATIVE (NEGATIVE); LEUKOCYTE ESTERASE, URINE NEGATIVE (NEGATIVE); NITRITE,URINE NEGATIVE (NEGATIVE); OCCULT BLOOD,URINE NEGATIVE (NEGATIVE); PROTEIN,URINE NEGATIVE (NEGATIVE); UROBILINOGEN,URINE 0.2 (NORMAL) E.U./dL (NORMAL)
[2020-08-02 13:21] LABS: BACTERIA,URINE None Seen /HPF (None Seen); CLARITY,URINE CLEAR (CLEAR); RBC,URINE None Seen /HPF (0-5); SQUAMOUS EPITHELIAL CELL,UR RARE Squamous (<= Few)
[2020-08-02 13:22] LABS: AMPHETAMINE SCREEN,URINE NEGATIVE (NEGATIVE); BENZODIAZEPINES SCREEN, URINE NEGATIVE (NEGATIVE); COCAINE SCREEN URINE NEGATIVE (NEGATIVE); METHADONE SCREEN, URINE NEGATIVE (NEGATIVE); METHAMPHETAMINES SCREEN, URINE NEGATIVE (NEGATIVE); OPIATE SCREEN, URINE NEGATIVE (NEGATIVE); OXYCODONE SCREEN, URINE NEGATIVE (NEGATIVE); PROPOXYPHENE SCREEN, URINE NEGATIVE (NEGATIVE); TRICYCLIC ANTIDEPRESSANT,URINE NEGATIVE (NEGATIVE)
== END 2020-08-02 23:59 | disposition home or self-care (01) ==
LOC: LAB.R 08:00
PROVIDERS: ATTEND Nurse Practitioner Obstetrics & Gynecology
DX: Z34.90 Encounter for supervision of normal pregnancy, unspecified, unspecified trimester (principal)
CPT/HCPCS: 80306; 81001; 87086

== ENCOUNTER 2020-08-08 15:34 | Outpatient (CLI) | payer BC ==
--- NOTE | 2020-08-08 16:50 | Ultrasound Report ---
PROCEDURE: OB First Trimester INDICATIONS: SUPERVISION OF NORMAL OUTSIDE/PRIOR DATING DATA: Last menstrual period (LMP): 08/04/2019. LMP-based estimated date of delivery (TOYIN): 03/11/2021. First dating scan (date and location): 08/08/2020. Estimated date of delivery (TOYIN) from first dating scan: 03/07/2021. TECHNIQUE: Real-time scanning was performed of the fetus and maternal pelvic organs, with image documentation. COMPARISON: None FINDINGS: Embryo: Single live intrauterine is identified with crown-rump length measuring 3.67 m cor responding to 9 weeks 6 days. heart rate is identified at 171 bpm. Cervix is closed. There is q uestionable appearance of an arcuate uterus. No evidence of septation. Measurement variability in dating: +/- 4 weeks by LMP, +/- 7 days by mean sac diameter (use before 6 weeks gestation if crown-rump length not able to be measured), +/- 5 days by crown-rump length (6-12 weeks gestation). Maternal organs: Ovaries demonstrate a right corpus luteal cyst measuring 27 x 16 x 19 mm.. IMPRESSION: 1. Single living with ultrasound gestational age of 9 weeks 6 days corresponding to ultraso und TOYIN of 03/07/2021. 2. Recommend follow-up imaging at 20-22 weeks for dates and anatomy. 3. Questionable appearance of arcuate uterus. However, distortion can be present secondary to intraut erine . Recommend dedicated coronal as well as coronal cine images on interval follow-up exa m. No evidence of septation. Reviewed by: Cori Gann MD on 08/08/2020 4:48 PM PST Approved by: Cori Gann MD on 08/08/2020 4:48 PM PST Station ID: [id number]
== END 2020-08-08 15:35 | disposition home or self-care (01) ==
LOC: DI 15:34
PROVIDERS: ATTEND Nurse Practitioner Obstetrics & Gynecology
DX: Z34.90 Encounter for supervision of normal pregnancy, unspecified, unspecified trimester (principal)

== ENCOUNTER 2020-08-21 07:00 | Outpatient (CLI) | payer BC ==
[2020-08-21 19:56] LABS: TRICHOMONAS VAGINALIS DNA NEGATIVE (NEGATIVE)
== END 2020-08-21 23:59 | disposition home or self-care (01) ==
LOC: LAB.R 07:00
PROVIDERS: ATTEND Obstetrics & Gynecology
DX: Z11.3 Encounter for screening for infections with a predominantly sexual mode of transmission (principal)
CPT/HCPCS: 87491; 87591; 87661

== ENCOUNTER 2020-10-10 13:29 | Outpatient (CLI) | payer BC ==
[2020-10-10 13:51] LABS: BASOPHILS % (AUTO) 0.4 %; EOSINOPHILS # (AUTO) 0.1 10^3/uL (0.0-0.7); EOSINOPHILS % (AUTO) 1.1 %; HCT - HEMATOCRIT 39.2 % (37.0-47.0); LYMPHOCYTES # (AUTO) 2.2 10^3/uL (1.5-3.5); MEAN CORPUSCULAR HEMOGLOBIN 29.7 pg (27.0-31.0); MEAN CORPUSCULAR HGB CONC 33.2 g/dL (32.0-36.0); MEAN CORPUSCULAR VOLUME 89.7 fL (81.0-99.0); MEAN PLATELET VOLUME 9.8 fL (7.9-10.8); MONOCYTES # (AUTO) 0.4 10^3/uL (0.0-1.0); MONOCYTES % (AUTO) 3.4 %; NEUTROPHILS # (AUTO) 7.9 10^3/uL (1.5-6.6); NEUTROPHILS % (AUTO) 73.6 %; PLT - PLATELET COUNT 214 10^3/uL (130-450); RED BLOOD COUNT 4.37 10^6/uL (4.20-5.40); RED CELL DISTRIBUTION WIDTH 12.9 % (12.0-15.0); WHITE BLOOD COUNT 10.7 x10^3/uL (4.8-10.8)
[2020-10-11 08:46] LABS: HIV AG/AB 4TH GEN NON-REACTIVE (NON-REACTIVE)
[2020-10-11 11:53] LABS: HEPATITIS B SURFACE ANTIGEN NON-REACTIVE (NON-REACTIVE)
[2020-10-11 11:55] LABS: HEPATITIS C ANTIBODY NON-REACTIVE (NON-REACTIVE)
== END 2020-10-10 13:30 | disposition home or self-care (01) ==
LOC: LAB 13:29
PROVIDERS: ATTEND Obstetrics & Gynecology
DX: Z34.90 Encounter for supervision of normal pregnancy, unspecified, unspecified trimester (principal)
CPT/HCPCS: 36415; 85025; 86592; 86762; 86787; 86803; 86850; 86900; 86901; 87340; 87389

== ENCOUNTER 2020-10-22 13:00 | Outpatient (CLI) | payer BC ==
--- NOTE | 2020-10-22 16:48 | Ultrasound Report ---
PROCEDURE: OB Detailed Eval INDICATIONS: SUPERVISION OF NORMAL OUTSIDE/PRIOR DATING DATA: Last menstrual period (LMP): 06/04/2021. LMP-based estimated date of delivery (TOYIN): 03/07/2021 First dating scan (date and location): 08/08/2020. Estimated date of delivery (TOYIN) from first dating scan: 03/11/2021. Growth measurements low are base d on TOYIN of 03/07/2021 TECHNIQUE: Real-time scanning was performed of the fetus, with image documentation and biometric measurements. COMPARISON: OB ultrasound 08/08/2020 FINDINGS: General: A single living intrauterine gestation is present. Presentation: Breech Placenta: Placental position is anterior, without previa. Amniotic fluid index: 18.4 cm, 84th percentile for gestational age. Largest pocket 5.0 cm. heart rate: 137 beats per minute. Maternal cervical canal: 3.6 cm long; normal length is 2.5 cm or more. biometrics: Biparietal diameter: 4.9 cm 21 weeks 0 days Head circumference: 18.2 cm 20 weeks 5 days Abdominal circumference: 15.0 cm 20 weeks 2 days Femur length: 3.0 cm 19 weeks 2 days Estimated gestational age from initial scan: 20 weeks 0 days Composite gestational age from present scan: 20 weeks 3 days Estimated weight and percentile: 323 g, 43rd percentile Measurement variability in biometric dating: +/- 10 days from 12-20 weeks gestation, +/- 2 weeks from 20-30 weeks gestation, +/- 3 weeks at 30 weeks gestation or later. Anatomic survey: Neuro: Ventricles are normal at less than 10 mm. Cisterna magna is normal at 3-11 mm. Cerebellum i s normal in size and morphology. Nuchal skin fold: Normal at less than 6 mm between 14 and 20 weeks gestational age. Face: Nose and lips, facial profile are normal. Spine: No evidence for spina bifida. Heart: 4-chambered heart is present, with normal ventricular outflow tracts. Diaphragm: Diaphragm is intact. Stomach: Left-sided stomach is present. Kidneys: No hydronephrosis. Normal is less than 5 mm in 2nd trimester, less than 7 mm in 3rd trimester. Cord: 3 vessel cord has orthotopic insertion. Bladder: Normal in size. Extremities: All 4 extremities are visualized. IMPRESSION: 1. Single live intrauterine with ultrasound gestational age today of 20 weeks 3 days. 2. Anatomy is within normal limits. Reviewed by: Cori Gann MD on 10/22/2020 4:46 PM PDT Approved by: Cori Gann MD on 10/22/2020 4:46 PM PDT Station ID: [id number]
== END 2020-10-22 13:01 | disposition home or self-care (01) ==
LOC: DI 13:00
PROVIDERS: ATTEND Obstetrics & Gynecology
DX: Z34.92 Encounter for supervision of normal pregnancy, unspecified, second trimester (principal)

== ENCOUNTER 2020-12-18 12:59 | Outpatient (CLI) | payer BC ==
[2020-12-18 14:17] LABS: HCT - HEMATOCRIT 38.2 % (37.0-47.0); HGB - HEMOGLOBIN 12.8 g/dL (12.0-16.0); MEAN CORPUSCULAR HEMOGLOBIN 30.5 pg (27.0-31.0); MEAN CORPUSCULAR HGB CONC 33.5 g/dL (32.0-36.0); MEAN PLATELET VOLUME 9.7 fL (7.9-10.8); RED BLOOD COUNT 4.2 10^6/uL (4.20-5.40); RED CELL DISTRIBUTION WIDTH 12.5 % (12.0-15.0); WHITE BLOOD COUNT 12.8 x10^3/uL (4.8-10.8)
== END 2020-12-18 13:00 | disposition home or self-care (01) ==
LOC: LAB 12:59
PROVIDERS: ATTEND Obstetrics & Gynecology
DX: Z34.90 Encounter for supervision of normal pregnancy, unspecified, unspecified trimester (principal)
CPT/HCPCS: 36415; 82950; 85027

== ENCOUNTER 2021-01-21 08:00 | Outpatient (CLI) | payer BC ==
[2021-01-21 16:18] LABS: BILIRUBIN,URINE NEGATIVE (NEGATIVE); GLUCOSE, URINE (UA) NEGATIVE (NEGATIVE); KETONES,URINE (UA) NEGATIVE (NEGATIVE); LEUKOCYTE ESTERASE, URINE NEGATIVE (NEGATIVE); NITRITE,URINE NEGATIVE (NEGATIVE); OCCULT BLOOD,URINE NEGATIVE (NEGATIVE); PH,URINE 5.5 PH (5.0-7.5); PROTEIN,URINE NEGATIVE (NEGATIVE); UROBILINOGEN,URINE 0.2 (NORMAL) E.U./dL (NORMAL)
[2021-01-21 16:41] LABS: CLARITY,URINE CLOUDY (CLEAR)
[2021-01-21 16:46] LABS: AMORPHOUS SEDIMENT,UR Marked /LPF; BACTERIA,URINE Rare /HPF (None Seen); RBC,URINE None Seen /HPF (0-5); SQUAMOUS EPITHELIAL CELL,UR FEW Squamous (<= Few); WBC,URINE 0-3 /HPF (0-5)
== END 2021-01-21 23:59 | disposition home or self-care (01) ==
LOC: LAB.WC 08:00
PROVIDERS: ATTEND Obstetrics & Gynecology
DX: Z34.90 Encounter for supervision of normal pregnancy, unspecified, unspecified trimester (principal)
CPT/HCPCS: 81001; 87086

== ENCOUNTER 2021-02-18 08:00 | Outpatient (CLI) | payer BC | END 2021-02-18 23:59 | disposition home or self-care (01) | LOC: LAB.WC 08:00 | PROVIDERS: ATTEND Obstetrics & Gynecology | DX: Z34.90 Encounter for supervision of normal pregnancy, unspecified, unspecified trimester (principal) | CPT/HCPCS: 87797 ==

== ENCOUNTER 2021-03-05 08:04 | Inpatient (IN) | payer BC ==
[2021-03-05] MEDS ORDERED: ONDANSETRON 4 MG/2 ML VIAL IVP PRN ×2 (08:17→14:30)
[2021-03-05] MEDS ORDERED: AMPICILLIN 2 GM in SODIUM CHLORIDE 0.9% MINIBAG 100 ML IV ONE (08:17)
[2021-03-05] MEDS ORDERED: METHYLERGONOVINE 0.2 MG/ML VIAL IM PRN (08:17)
[2021-03-05] MEDS ORDERED: LIDOCAINE-MPF 1% 30 ML VIAL ID PRN (08:17)
[2021-03-05] MEDS ORDERED: miSOPROStoL 200 MCG TABLET BC PRN (08:17)
[2021-03-05] MEDS ORDERED: SODIUM CHLORIDE FLUSH 0.9% 10 ML SYRINGE IVP PRN (08:17)
[2021-03-05] MEDS ORDERED: OXYTOCIN/SODIUM CHLORIDE 500 ML IV PRN (08:17)
[2021-03-05] MEDS ORDERED: TRANEXAMIC ACID IN NACL 1,000 MG/100 ML BAG IV PRN (08:17)
[2021-03-05] MEDS ORDERED: CARBOPROST TROMETHAMINE 250 MCG/ML AMP IM PRN (08:17)
[2021-03-05] MEDS ORDERED: fentaNYL 100 MCG/2 ML VIAL IVP PRN (08:17)
[2021-03-05] MEDS ORDERED: OXYTOCIN 10 UNIT/ML VIAL IM PRN (08:17)
[2021-03-05] MEDS ORDERED: ACETAMINOPHEN 325 MG TABLET PO SCH (09:00)
[2021-03-05] MEDS ORDERED: miSOPROStoL 100 MCG TABLET BC SCH (09:00)
--- NOTE | 2021-03-05 09:25 | HISTORY & PHYSICAL EXAMINATION ---
Admit History - : 6 Parity: 4 Complications This : positive: None Smoking Status: Never smoker - Mother's Labs Mother's Blood Type: positive: O Mother's RH: positive: Positive GBS: positive: Group B Strep Positive Rubella Status: positive: Immune - Other Maternal History Other Maternal History: ID: Patient is a 31 yo at 39w1d here for elective induction of labor. HPI: Hx of fast labor. Desires epidural prior to AROM. No contractions at presentation. The patient has an uncomplicated past medical history. She has had one surgical procedure, which was a D&C for a 7-week SAB. She has had 4 SVDs with uncomplicated pregnancies. No sexually transmitted infections. Specifically, no history of HSV. No abnormal Pap smears. Her last Pap smear was in April of 2020. She has had nausea, but no vomiting. PNC: LMP 06/04/2020 gives TOYIN 03/11/2021. US on 08/08/2020 at 9 W/60 gives TOYIN 03/07/2021; CWD. TOYIN:: 03/11/2021 Vertex by BSUS FAS: EFW 43rd %ile, 3VC, Anterior without previa, ROCK 84th% O pos/Rub imm VZV: immune Genetic testing: Declined FAS: wnl CL 3.6 cm 3VC EFW 43%ile, male Glucola at 28 weeks- 120 Tdap: 12/19/2020 HSV: Denies. GBS: positive Breast pump Rx. 12/19/2020 MOD: Desires IOL to get epidural as has fast labor- Signed consents for 03/05/21 IOL -DO NOT AROM WITHOUT EPIDURAL IN PLACE Contraception: TBD. Pap smear: 04/29/2020. Due in 2024 Past Medical History: Energy/dizziness with Past Surgical History: D&C (OUTSIDE) FOR MISSED SOC HX: Patient lives in [place] with and children SAHM No DARYN FH: DM: Grandmother Cancer: Grandmother, NOS CVD: none HTN: father ROS: As per HPI, otherwise remaining systems are negative. PE: GEN: NAD HEAD: NCAT EYES: No scleral icterus or conjunctival injection NECK: No cervical LAD or TM CV: RRR RESP: CTAB, normal effort ABD: S&NT/ND PSYCH: appropriate affect NEURO: alert and oriented, normal gait and coordination EXT: WWP VULVA: Normal external female genitalia. Normal Bartholin's, Whatley's, urethra meatus and anus. No inguinal lymphadenopathy. SVE: 60/-2 Vertex by BSUS A/P: Patient is a 31 yo at 39w1d here for elective induction of labor. IOL: Will start with misoprostol 25 mcg BC x1 -Wants epidural prior to pitocin or AROM -Will likely start pitocin prior to AROM to organize contractions -GBS positive with hx of fast labor: start ampicillin with misoprostol PPH risk: moderate given hx of SVDx4 -Have uterotonics available at time of delivery -T&C for 2 units PROCs FWB: vertex, well grown, GBS positive, Cat I tracing -CEFM -Start ampicillin for GBS ppx at time of cervical ripening PAIN: Patient desires epidural prior to AROM or pitocin Anticipate Meds/Allgy - Home Medications Home Medications: Ambulatory Orders Medication Instructions Recorded Confirmed Witch Judith/Glycerin [Tucks] 1 each TOP QID PRN med..pad 07/03/18 - Allergies Allergies/Adverse Reactions: Allergies Allergy/AdvReac Type Severity Reaction Status Date / Time No Known Drug Allergies Allergy Verified 07/10/17 18:46
[2021-03-05] MEDS: LACTATED RINGERS 1,000 ML IV SCH ×2 (09:26→16:08)
[2021-03-05 09:30] LABS: BASOPHILS # (AUTO) 0.1 10^3/uL (0.0-0.1); BASOPHILS % (AUTO) 0.5 %; EOSINOPHILS # (AUTO) 0.2 10^3/uL (0.0-0.7); EOSINOPHILS % (AUTO) 1.8 %; HCT - HEMATOCRIT 37.7 % (37.0-47.0); HGB - HEMOGLOBIN 12.7 g/dL (12.0-16.0); LYMPHOCYTES # (AUTO) 2.4 10^3/uL (1.5-3.5); LYMPHOCYTES % (AUTO) 22.4 %; MEAN CORPUSCULAR HGB CONC 33.7 g/dL (32.0-36.0); MEAN CORPUSCULAR VOLUME 89.1 fL (81.0-99.0); MEAN PLATELET VOLUME 10.3 fL (7.9-10.8); MONOCYTES # (AUTO) 0.6 10^3/uL (0.0-1.0); MONOCYTES % (AUTO) 5.3 %; NEUTROPHILS # (AUTO) 7.3 10^3/uL (1.5-6.6); NEUTROPHILS % (AUTO) 69.7 %; PLT - PLATELET COUNT 200 10^3/uL (130-450); RED BLOOD COUNT 4.23 10^6/uL (4.20-5.40); WHITE BLOOD COUNT 10.5 x10^3/uL (4.8-10.8)
[2021-03-05] MEDS: AMPICILLIN 1 GM in SODIUM CHLORIDE 0.9% MINIBAG 100 ML IV SCH ×2 (13:44→17:35)
[2021-03-05] MEDS ORDERED: ROPIVACAINE 0.2% 200 MG/100 ML BAG EP ONE (13:45)
--- NOTE | 2021-03-05 13:51 | ANESTHESIA ---
Pre-Anesthesia VS, & Labs - Diagnosis Active labor - Procedure vaginal delivery Vital Signs: Temp Pulse Resp BP Pulse Ox 37.4 C 110 H 14 131/80 H 03/05/21 08:21 03/05/21 08:21 03/05/21 08:21 03/05/21 08:21 Height: 5 ft 3.5 in Weight (kg): 80.739 kg Body Mass Index: 31.0 BMI Classification: Obese - NPO Other (clear liquids) - Is Patient ?: Yes - Lab Results Current Lab Results: Laboratory Tests 03/05/21 08:35: WBC 10.5, RBC 4.23, Hgb 12.7, Hct 37.7, MCV 89.1, MCH 30.0, MCHC 33.7, RDW 13.0, Plt Count 200, MPV 10.3, Neut # (Auto) 7.3 H, Lymph # (Auto) 2.4, [place] # (Auto) 0.6, Eos # (Auto) 0.2, Baso # (Auto) 0.1, Absolute Nucleated RBC 0.00, Nucleated RBC % 0.0 03/05/21 08:18: Blood Type O POSITIVE, Antibody Screen NEGATIVE, Crossmatch IS Only See Detail Fish Bones: 03/05/21 08:35 Home Medications and Allergies Active Medications Acetaminophen (Acetaminophen 325 Mg Tablet) 650 mg PO Q6H ULI Carboprost Tromethamine (Carboprost Tromethamine 250 Mcg/Ml Amp) 250 mcg IM Q15M PRN PRN Reason: Step 4: Hemorrhage protocol Stop: 03/10/21 08:18 Fentanyl (Fentanyl 100 Mcg/2 Ml Vial) 50 mcg IVP Q1H PRN PRN Reason: PAIN Oxytocin/Sodium Chloride (Pitocin/Sodium Chloride) 500 mls @ 999 mls/hr IV PRN PRN; Protocol PRN Reason: POST- HEMORR PREVENTION Stop: 03/10/21 08:18 Tranexamic Acid (Tranexamic 1,000 Mg/100ml-Nacl) 1,000 mg in 100 mls @ 600 mls/hr IV .ONCE PRN PRN Reason: EBL >1200mL and within 3hr Stop: 03/10/21 08:18 Lactated Ringer's (Lr) 1,000 mls @ 150 mls/hr IV .Q6H40M ULI Last Admin: 03/05/21 09:26 Dose: 150 mls/hr Documented by: Ampicillin Sodium 1 gm/ Sodium (Chloride) 100 mls @ 200 mls/hr IV Q4H [facility] Lidocaine HCl (Lidocaine-Mpf 1% 30 Ml Vial) 30 ml ID .ONCE PRN PRN Reason: PERINEAL REPAIR Stop: 03/10/21 08:18 Methylergonovine Maleate (Methylergonovine 0.2 Mg/Ml Vial) 0.2 mg IM .ONCE PRN PRN Reason: Step 2: Hemorrhage protocol Stop: 03/10/21 08:18 Misoprostol (Misoprostol 200 Mcg Tablet) 800 mcg BC .ONCE PRN PRN Reason: Step 3: Hemorrhage protocol Stop: 03/10/21 08:18 Misoprostol (Misoprostol 100 Mcg Tablet) 25 mcg BC Q4H [facility] Last Admin: 03/05/21 09:25 Dose: 25 mcg Documented by: Ondansetron HCl (Ondansetron 4 Mg/2 Ml Vial) 4 mg IVP Q4H PRN PRN Reason: Nausea / Vomiting Oxytocin (Oxytocin 10 Unit/Ml Vial) 10 unit IM .ONCE PRN PRN Reason: Step one: If no IV access Stop: 03/10/21 08:18 Sodium Chloride (Sodium Chloride Flush 0.9% 10 Ml Syringe) 10 ml IVP PRN PRN PRN Reason: NEEDED PER PROVIDER ORDERS Last Admin: 03/05/21 08:35 Dose: 10 ml Documented by: Allergies/Adverse Reactions: Allergies Allergy/AdvReac Type Severity Reaction Status Date / Time No Known Drug Allergies Allergy Verified 07/10/17 18:46 Anes History & Medical History - Anesthetic History Anesthesia Complications: reports: No previous complications - Medical History Cardiovascular: reports: None Pulmonary: reports: None Gastrointestinal: reports: None Urinary: reports: None Neuro: reports: None Musculoskeletal: reports: None Endocrine/Autoimmune: reports: None Blood Disorders: reports: None Skin: reports: None Smoking Status: Never smoker Psychosocial: reports: No issues indicated History of Cancer?: No - Surgical History Gynecologic: reports: Dilation and currettage Exam General: Alert, Oriented x3, Cooperative, No acute distress Dental: WNL Mouth Openin Fingerbreadth Neck Mobility: Normal Mallampati classification: I Thyromental Distance: 4-6 cm Mental/Cognitive Status: Alert/Oriented X3, Normal for patient Plan Anesthesia Type: Epidural Consent for Procedure(s) Verified and Reviewed: Yes Code Status: Attempt Resuscitation ASA classification: 2-Mild systemic disease Is this case an emergency?: No
[2021-03-05] MEDS ORDERED: ePHEDrine 50 MG/ML VIAL IVP PRN (14:30)
[2021-03-05] MEDS ORDERED: NALOXONE 0.4 MG/ML VIAL IVP PRN (14:30)
[2021-03-05] MEDS ORDERED: ROPIVACAINE 0.2% 200 MG/100 ML BAG EP PRN ×2 (14:30→18:11)
[2021-03-05] MEDS ORDERED: NALBUPHINE 10 MG/ML AMP IVP PRN (14:30)
[2021-03-05] MEDS ORDERED: LACTATED RINGERS 500 ML IV ONE (14:31)
--- NOTE | 2021-03-05 17:19 | PROVIDER PROGRESS NOTE ---
Subjective - Prog Note Date Prog Note Date: 03/05/21 Prog Note Time: 17:11 - Subjective Subjective: Patient had received epidural and was started on low dose pitocin. Has had ampicillin x 2 doses. Desires AROM EFM 145 mod danny 15x15 accels no decels TOCO: Q2 min SVE 5/70/-2 AROM for clear fluid Large volume of fluid Cat I tracing Cont with pitocin induction, currently at 2 mU/min anticipate Objective - Lab Results Fish Bones: 03/05/21 08:35 Other Labs: Lab Results x24hrs 03/05/21 03/05/21 Range/Units 08:35 08:18 WBC 10.5 (4.8-10.8) x10^3/uL RBC 4.23 (4.20-5.40) 10^6/uL Hgb 12.7 (12.0-16.0) g/dL Hct 37.7 (37.0-47.0) % MCV 89.1 (81.0-99.0) fL MCH 30.0 (27.0-31.0) pg MCHC 33.7 (32.0-36.0) g/dL RDW 13.0 (12.0-15.0) % Plt Count 200 (130-450) 10^3/uL MPV 10.3 (7.9-10.8) fL Neut # (Auto) 7.3 H (1.5-6.6) 10^3/uL Lymph # (Auto) 2.4 (1.5-3.5) 10^3/uL [place] # (Auto) 0.6 (0.0-1.0) 10^3/uL Eos # (Auto) 0.2 (0.0-0.7) 10^3/uL Baso # (Auto) 0.1 (0.0-0.1) 10^3/uL Absolute Nucleated RBC 0.00 x10^3/uL Nucleated RBC % 0.0 /100WBC Blood Type O POSITIVE Antibody Screen NEGATIVE Crossmatch IS Only See Detail
[2021-03-05] MEDS ORDERED: LIDOCAINE-PF 2% 10 ML AMP SUBQ ONE (18:06)
[2021-03-05] MEDS ORDERED: SODIUM CHLORIDE 0.9% 10 ML VIAL IVP ONE (18:06)
[2021-03-05] MEDS ORDERED: fentaNYL 100 MCG/2 ML VIAL ONE (18:06)
--- NOTE | 2021-03-05 18:07 | ANESTHESIA PROCEDURE NOTE ---
Anesthesia Epidural Template - Patient Report Patient Reports: positive: Inadequate control - Plan Plan: positive: Other (Patient reports increased pelvic pressure and pain with contractions. Epidural bolused with 5ml of 2% lidocaine, 100mcg fentanyl, and 3ml of PF NS. Patient reports relief of pain but continued pelvic and perineal pressure.)
[2021-03-05] MEDS ORDERED: HYDROCORTISONE 1% CREAM 28 GM TUBE PR PRN (19:45)
[2021-03-05] MEDS ORDERED: ONDANSETRON ODT 4 MG TABLET TL PRN (19:45)
[2021-03-05] MEDS ORDERED: SIMETHICONE CHEW 80 MG TABLET PO PRN (19:45)
--- NOTE | 2021-03-05 19:52 | DELIVERY NOTE ---
Delivery Note - Labor Labor: positive: Induced by oxytocin - Infant Delivery Method Delivery Method: positive: Spontaneous vaginal delivery - Cervical Ripening Method Cervical Ripening Method: positive: Misoprostil - Presentation Presentation: positive: Vertex, OA - occiput anterior - Nuchal Cord Nuchal Cord: positive: Present, Reduced - Anesthetic Anesthetic Type: - Amniotic Fluid Description Amniotic Fluid Description: positive: Clear - Episiotomy Type Episiotomy Type: positive: None - Laceration Laceration: positive: 2nd degree, Vaginal - Suture Suture Type: positive: Vicryl Suture Size: positive: 3-0 - Delivery Outcome Delivery Outcome: positive: Livebirth - [place]: positive: Placed in direct skin contact with mother, Stimulated, Warmed, [place] used sex: positive: Male - Cord Cord: positive: 3 vessels - Placenta Placenta: positive: Intact, Expressed - Estimated Blood Loss Estimated Blood Loss (in cc): 100 - Post Delivery Events Post Delivery Events: positive: No post delivery events - Delivery Comments (Free Text/Narrative) Delivery Comments (Free Text/Narrative): STAGE I: Patient is a 31 yo at 39+1 wga who presented for elective induction of labor. Patient was confirmed vertex at presentation. Received misoprostol 25 mcg BC x1 at admission. Given history of rapid delivery and GBS positive cultures, she was started on ampicillin for GBS prophylaxis at presentation. She received 2 doses of ampicillin prior to delivery. Her initial SVE was 2/60/-2. She received an epidural for pain management. She was started on pitocin for induction, reaching a max dose of 2 mu/min. Underwent artificial rupture of membranes at 16:53 am, notable for passage of clear fluid. She was noted to be completely dilated at 18:39. Cat I tracing throughout stage I labor. STAGE II: Patient began pushing at 18:44. She delivered a viable male from direct OA position at 18:54. During delivery. rotated to DOMINGA position and delivered with right shoulder anterior without difficulty. Loose nuchal cord was noted and was easily reduced. was delivered to maternal chest. Cord was clamped x2 and cut by FOB after pulsations had ceased. Weight and Apgars are pending. STAGE III: Placenta delivered at 19:05 with manual expression. It was examined and found to be intact. Inspection of the perineum revealed a small midline 2nd degree laceration. It was repaired with 3-0 Vicryl in the usual sterile fashion in layers. Good hemostasis was noted. Total EBL 100 mL. Procedure was well tolerated and without complication.
[2021-03-05] MEDS ORDERED: LACTATED RINGERS 1,000 ML IV SCH (20:00)
[2021-03-05] MEDS: DOCUSATE SODIUM 100 MG CAPSULE PO PRN (20:43)
[2021-03-05] MEDS: IBUPROFEN 600 MG TABLET PO PRN (20:43)
[2021-03-06] MEDS: ACETAMINOPHEN 500 MG TABLET PO PRN ×2 (00:18→07:26)
[2021-03-06] MEDS: IBUPROFEN 600 MG TABLET PO PRN ×3 (02:46→15:36)
[2021-03-06] MEDS: DOCUSATE SODIUM 100 MG CAPSULE PO PRN (09:17)
[2021-03-06 13:36] VITALS: BP 114/57
--- NOTE | 2021-03-06 17:55 | Discharge Plan ---
Discharge Plan Problem Reviewed?: Yes Disposition: 01 Home, Self Care Condition: Good Diet: Regular Activity Restrictions: Additional Comments (Nothing in the vagina for 6 weeks: No intercourse, tampons, douching Call for: -Fever greater than 100.5 - Pain that does not improve with pain medication -Heavy bleeding in which you are soaking a pad an hour for 2 hours in a row No tub baths or hot tubs for 4 weeks) Shower Restrictions: Yes (Ok to shower. Avoid tub baths as above. ) Additional Instructions or Follow Up instructions: Ibuprofen 600 mg by mouth every 6 hours as needed for pain Acetaminophen 500-1000 mg by mouth every 8 hours as needed for pain Docusate 100-200 mg by mouth twice a day as needed for constipation No Smoking: If you smoke, Please STOP! Call for help. Follow-up with: Chichi Koenig MD [Provider Admit Priv/Credential] -
--- NOTE | 2021-03-06 17:58 | PROVIDER PROGRESS NOTE ---
Subjective - Prog Note Date Prog Note Date: 03/06/21 Prog Note Time: 17:56 - Subjective Subjective: Patient was seen this am. Up and ambulating. Tolerating po. Pain well managed. Voiding. BF going well. Desires pm discharge. Objective - Vital Signs/Intake & Output Reviewed Vital Signs: Yes Vital Signs: Vital Signs x48h Temp Pulse Resp BP 03/06/21 13:35 98.4 F 78 14 114/57 L Intake & Output: Intake & Output 03/03/21 03/04/21 03/05/21 03/06/21 23:59 23:59 23:59 23:59 Intake Total 2927.500 540 Output Total 700 450 Balance 2227.500 90 - Objective General Appearance: positive: No acute distress Respiratory: positive: No respiratory distress Cardiovascular: positive: Other (RR) Abdomen: positive: Other (S&NT/ND. FF below umbi) Skin: positive: Color nml, No rash, Warm, Dry Extremities: positive: Non-tender, No pedal edema Neurologic/Psychiatric: positive: Oriented x3 - Lab Results Fish Bones: 03/05/21 08:35 Assessment/Plan - Problem List (1) (normal spontaneous vaginal delivery) Impression: PPD#1 s/p Doing well Patient is meeting goals for discharge Desires pm discharge. Rh pos/Rub imm Declines discharge medications Routine discharge instructions given
--- NOTE | 2021-03-06 18:08 | DISCHARGE SUMMARY ---
Discharge Summary Admit Date: 03/05/21 Discharge Date: 03/06/21 Discharging Provider: [facility] Condition at Discharge: Good Discharge Disposition: 01 Home, Self Care - DIAGNOSES Admission Diagnoses: IUP at 39+1 wga Elective IOL Discharge Diagnoses with Status of Each Condition: Same and delivery of term gestation - HPI History of Present Illness: ID: Patient is a 31 yo at 39w1d admitted here for elective induction of labor. Patient has a history of fast labor. Desires epidural prior to AROM. No contractions at presentation. The patient has an uncomplicated past medical history. She has had one surgical procedure, which was a D&C for a 7-week SAB. She has had 4 SVDs with uncomplicated pregnancies. No sexually transmitted infections. Specifically, no history of HSV. No abnormal Pap smears. Her last Pap smear was in April of 2020. She has had nausea, but no vomiting. - HOSPITAL COURSE Hospital Course: STAGE I: Patient is a 31 yo at 39+1 wga who presented for elective induction of labor. Patient was confirmed vertex at presentation. Received misoprostol 25 mcg BC x1 at admission. Given history of rapid delivery and GBS positive cultures, she was started on ampicillin for GBS prophylaxis at presentation. She received 2 doses of ampicillin prior to delivery. Her initial SVE was 2/60/-2. She received an epidural for pain management. She was started on pitocin for induction, reaching a max dose of 2 mu/min. Underwent artificial rupture of membranes at 16:53 am, notable for passage of clear fluid. She was noted to be completely dilated at 18:39. Cat I tracing throughout stage I labor. STAGE II: Patient began pushing at 18:44. She delivered a viable male from direct OA position at 18:54. During delivery. Infant rotated to DOMINGA position and delivered with right shoulder anterior without difficulty. Loose nuchal cord was noted and was easily reduced. was delivered to maternal chest. Cord was clamped x2 and cut by FOB after pulsations had ceased. Weight and Apgars are pending. STAGE III: Placenta delivered at 19:05 with manual expression. It was examined and found to be intact. Inspection of the perineum revealed a small midline 2nd degree laceration. It was repaired with 3-0 Vicryl in the usual sterile fashion in layers. Good hemostasis was noted. Total EBL 100 mL. Procedure was well tolerated and without complication. course was uncomplicated. patient was meeting goals for discharge by PPD#1. Rh positive/Rubella immune. Declined discharge medications. - ALLERGIES Allergies/Adverse Reactions: Allergies Allergy/AdvReac Type Severity Reaction Status Date / Time No Known Drug Allergies Allergy Verified 03/05/21 19:36 - MEDICATIONS Home Medications: Ambulatory Orders Medication Instructions Recorded Confirmed Witch Judith/Glycerin [Tucks] 1 each TOP QID PRN med..pad 07/03/18 - LABS Result Diagrams: 03/05/21 08:35 - FOLLOW UP Follow Up: [address] Koenig - TIME SPENT Time Spent in Discharge (Minutes): 30
== END 2021-03-06 19:13 | disposition home or self-care (01) | DRG 807 ==
LOC: WFO 08:04 → FBP 08:09 → WFO 08:16 → FBP 08:17
PROVIDERS: ADMIT Obstetrics & Gynecology; ATTEND Obstetrics & Gynecology
PROC: 10E0XZZ Delivery of Products of Conception, External Approach (ICD-10-PCS; principal; 2021-03-05)
PROC: 10907ZC Drainage of Amniotic Fluid, Therapeutic from Products of Conception, Via Natural or Artificial Opening (ICD-10-PCS; 2021-03-05)
PROC: 3E033VJ Introduction of Other Hormone into Peripheral Vein, Percutaneous Approach (ICD-10-PCS; 2021-03-05)
DX: O99.824 Streptococcus B carrier state complicating childbirth (principal); Z37.0 Single live birth; O69.81X0 Labor and delivery complicated by cord around neck, without compression, not applicable or unspecified; O70.1 Second degree perineal laceration during delivery; O32.2XX0 Maternal care for transverse and oblique lie, not applicable or unspecified; Z3A.39 39 weeks gestation of pregnancy
CPT/HCPCS: 36415; 85025; 86850; 86900; 86901; 86920; A9270; J7120

== ENCOUNTER 2022-08-22 08:00 | Outpatient (CLI) | payer BC ==
[2022-08-22 12:20] LABS: BILIRUBIN,URINE NEGATIVE (NEGATIVE); GLUCOSE, URINE (UA) NEGATIVE (NEGATIVE); KETONES,URINE (UA) NEGATIVE (NEGATIVE); LEUKOCYTE ESTERASE, URINE NEGATIVE (NEGATIVE); NITRITE,URINE NEGATIVE (NEGATIVE); OCCULT BLOOD,URINE NEGATIVE (NEGATIVE); PROTEIN,URINE NEGATIVE (NEGATIVE); UROBILINOGEN,URINE 0.2 (NORMAL) E.U./dL (NORMAL)
[2022-08-22 12:24] LABS: BACTERIA,URINE Few /HPF (None Seen); CLARITY,URINE CLEAR (CLEAR); RBC,URINE None Seen /HPF (0-5); SQUAMOUS EPITHELIAL CELL,UR FEW Squamous (<= Few); WBC,URINE 0-3 /HPF (0-5)
== END 2022-08-22 23:59 | disposition home or self-care (01) ==
LOC: LAB.WC 08:00
PROVIDERS: ATTEND Nurse Practitioner
DX: Z34.90 Encounter for supervision of normal pregnancy, unspecified, unspecified trimester (principal)
CPT/HCPCS: 81001; 87086

== ENCOUNTER 2022-09-05 15:32 | Outpatient (CLI) | payer BC ==
--- NOTE | 2022-09-05 16:52 | Ultrasound Report ---
PROCEDURE: OB First Trimester INDICATIONS: POSITIVE TEST OUTSIDE/PRIOR DATING DATA: Last menstrual period (LMP): 07/02/2022. LMP-based estimated date of delivery (TOYIN): 04/08/2023. First dating scan (date and location): 09/05/2022. Estimated date of delivery (TOYIN) from first dating scan: 04/10/2023. TECHNIQUE: Real-time scanning was performed of the fetus and maternal pelvic organs, with image documentation. Patient declined transvaginal imaging. COMPARISON: None from this FINDINGS: Embryo: [place]-rump length of 2.29 cm corresponding to gestational age of 9 weeks 0 days Heart rate: 162 bpm A subchorionic hemorrhage is present measuring up to 2.1 cm, less than 50% circumference of the adjac ent gestational sac. Measurement variability in dating: +/- 4 weeks by LMP, +/- 7 days by mean sac diameter (use before 6 weeks gestation if crown-rump length not able to be measured), +/- 5 days by crown-rump length (6-12 weeks gestation). Maternal organs: Ovaries are unremarkable. Right-sided corpus luteum. IMPRESSION: Single living intrauterine with gestational age of 9 weeks 0 days by crown-rump length, con cordant with clinical dates. Reviewed by: Ray Lopez MD on 09/05/2022 4:50 PM PST Approved by: Ray Lopez MD on 09/05/2022 4:50 PM PST Station ID: [id number]
== END 2022-09-05 15:33 | disposition home or self-care (01) ==
LOC: DI 15:32
PROVIDERS: ATTEND Nurse Practitioner
DX: Z34.91 Encounter for supervision of normal pregnancy, unspecified, first trimester (principal)

== ENCOUNTER 2022-09-16 09:03 | Outpatient (CLI) | payer BC ==
[2022-09-16 09:23] LABS: BASOPHILS % (AUTO) 0.3 %; EOSINOPHILS # (AUTO) 0.1 10^3/uL (0.0-0.7); EOSINOPHILS % (AUTO) 0.7 %; HCT - HEMATOCRIT 42.4 % (37.0-47.0); HGB - HEMOGLOBIN 14.1 g/dL (12.0-16.0); LYMPHOCYTES # (AUTO) 1.2 10^3/uL (1.5-3.5); LYMPHOCYTES % (AUTO) 12.4 %; MEAN CORPUSCULAR HEMOGLOBIN 29.4 pg (27.0-31.0); MEAN CORPUSCULAR HGB CONC 33.3 g/dL (32.0-36.0); MEAN CORPUSCULAR VOLUME 88.3 fL (81.0-99.0); MEAN PLATELET VOLUME 9.8 fL (7.9-10.8); MONOCYTES # (AUTO) 0.4 10^3/uL (0.0-1.0); MONOCYTES % (AUTO) 4.1 %; NEUTROPHILS % (AUTO) 82.3 %; PLT - PLATELET COUNT 219 10^3/uL (130-450); RED CELL DISTRIBUTION WIDTH 13.1 % (12.0-15.0); WHITE BLOOD COUNT 9.7 x10^3/uL (4.8-10.8)
[2022-09-17 07:10] LABS: HBsAG SCREEN Negative (Negative); RPR Non Reactive (Non Reactive); VARICELLA-ZOSTER AB IGG 1560 index (Immune >165)
[2022-09-17 10:13] LABS: HCV AB Non Reactive (Non Reactive); HIV SCREEN 4TH GENERATION Non Reactive (Non Reactive)
== END 2022-09-16 09:04 | disposition home or self-care (01) ==
LOC: LAB 09:03
PROVIDERS: ATTEND Nurse Practitioner
DX: Z34.90 Encounter for supervision of normal pregnancy, unspecified, unspecified trimester (principal)
CPT/HCPCS: 36415; 85025; 86592; 86762; 86787; 86803; 86850; 86900; 86901; 87340; 87389

== ENCOUNTER 2022-09-18 08:00 | Outpatient (CLI) | payer BC ==
[2022-09-19 00:37] LABS: CHLAMYDIA TRACHOMATIS DNA NEGATIVE (NEGATIVE); NEISSERIA GONORRHOEAE DNA NEGATIVE (NEGATIVE); TRICHOMONAS VAGINALIS DNA NEGATIVE (NEGATIVE)
== END 2022-09-18 23:59 | disposition home or self-care (01) ==
LOC: LAB.WC 08:00
PROVIDERS: ATTEND Obstetrics & Gynecology
DX: Z11.3 Encounter for screening for infections with a predominantly sexual mode of transmission (principal)
CPT/HCPCS: 87491; 87591; 87661

== ENCOUNTER 2022-11-20 19:09 | Outpatient (CLI) | payer BC ==
--- NOTE | 2022-11-21 13:39 | Ultrasound Report ---
PROCEDURE: OB Detailed Eval INDICATIONS: SUPERVISION OF OUTSIDE/PRIOR DATING DATA: Last menstrual period (LMP): 07/02/2022. LMP-based estimated date of delivery (TOYIN): 04/08/2023. First dating scan (date and location): 09/05/2022. Estimated date of delivery (TOYIN) from first dating scan: 04/10/2023. The below data below was generated using the ultrasound TOYIN of 04/10/2023 TECHNIQUE: Real-time scanning was performed of the fetus, with image documentation and biometric measurements. COMPARISON: OB ultrasound 09/05/2022 FINDINGS: General: A single living intrauterine gestation is present. Presentation: Vertex Placenta: Placental position is anterior, without previa. Amniotic fluid index: 12.6 cm, within normal limits for gestational age. heart rate: 150 beats per minute. Maternal cervical canal: 3.6 cm long; normal length is 2.5 cm or more. biometrics: Biparietal diameter: 4.1 cm 18 weeks 2 days Head circumference: 17.1 cm 19 weeks 5 days Abdominal circumference: 15.0 cm 20 weeks 2 days Femur length: 3.0 cm 19 weeks 2 days Estimated gestational age from initial scan: 20 weeks 1. Composite gestational age from present scan: 19 weeks 2 days Estimated weight and percentile: 308 g 23rd percentile Measurement variability in biometric dating: +/- 10 days from 12-20 weeks gestation, +/- 2 weeks from 20-30 weeks gestation, +/- 3 weeks at 30 weeks gestation or later. Anatomic survey: Neuro: Ventricles are normal at less than 10 mm. Cisterna magna is normal at 3-11 mm. Cerebellum i s normal in size and morphology. Nuchal skin fold: Normal at less than 6 mm between 14 and 20 weeks gestational age. Face: Nose and lips, facial profile are normal. Spine: No evidence for spina bifida. Heart: Echogenic focus is noted within the left ventricle. Diaphragm: Diaphragm is intact. Stomach: Left-sided stomach is present. Kidneys: No hydronephrosis. Normal is less than 5 mm in 2nd trimester, less than 7 mm in 3rd trimester. Cord: 3 vessel cord has orthotopic insertion. Bladder: Normal in size. Extremities: All 4 extremities are visualized. There is a questionable left foot deformity. IMPRESSION: Single live intrauterine with ultrasound gestational age today of 19 weeks 2 days. Echogenic focus is noted within the left ventricle. This is overall nonspecific and recommend correla tion with genetic testing to patient risk factors as indicated. Interval ultrasound follow-up is meme mmended. Possible left foot deformity versus limited visualization. Recommend interval follow-up for reassessm ent. Reviewed by: Cori Gann MD on 11/21/2022 1:37 PM PDT Approved by: Cori Gann MD on 11/21/2022 1:37 PM PDT Station ID: [id number]
== END 2022-11-20 19:10 | disposition home or self-care (01) ==
LOC: DI 19:09
PROVIDERS: ATTEND Obstetrics & Gynecology
DX: Z34.92 Encounter for supervision of normal pregnancy, unspecified, second trimester (principal)

== ENCOUNTER 2022-12-03 08:21 | Outpatient (CLI) | payer BC ==
[2022-12-05 19:07] LABS: AFP VALUE 58.7 ng/mL (.); DIA VALUE 131.36 pg/mL (.); HCG VALUE 13689 mIU/mL (.); INSULIN DEP DIABETES No (.); MULTIPLE GESTATION No (.); OPEN SPINA BIFIDA RISK 1 IN 10000 (.); RACE Caucasian (.); UE3 VALUE 2.59 ng/mL (.); WEIGHT 160 lbs (.)
[2022-12-09 10:08] LABS: AFP MOM 0.84 (.); DIA MOM 0.59 (.); DSR (BY AGE) 1 IN 360 (.); DSR (SECOND TRIMESTER) 1 IN 6757 (.); GEST. AGE ON COLLECTION DATE 21.7 WEEKS (.); GESTAT. AGE METHOD EDD (.); HCG MOM 0.59 (.); MATERNAL AGE AT EDD 34.1 yr (.); TEST RESULTS *Screen Negative* (.); TRISOMY 18 RISK Not increased (.); UE3 MOM 0.84 (.)
== END 2022-12-03 08:22 | disposition home or self-care (01) ==
LOC: LAB 08:21
PROVIDERS: ATTEND Obstetrics & Gynecology
DX: O09.42 Supervision of pregnancy with grand multiparity, second trimester (principal)
CPT/HCPCS: 36415; 81511

== ENCOUNTER 2022-12-04 22:30 | Outpatient (CLI) | payer BC ==
--- NOTE | 2022-12-05 13:23 | Ultrasound Report ---
PROCEDURE: OB F/U or Repeat INDICATIONS: SUPERVISION OF OUTSIDE/PRIOR DATING DATA: Last menstrual period (LMP): 07/02/2022. LMP-based estimated date of delivery (TOYIN): 04/08/2023. First dating scan (date and location): 09/05/2022. Estimated date of delivery (TOYIN) from first dating scan: 04/10/2023. The below data below was generated using the ultrasound TOYIN of 04/10/2023 TECHNIQUE: Real-time scanning was performed of the fetus, with image documentation and biometric measurements. COMPARISON: OB ultrasound 11/20/2022 FINDINGS: General: A single living intrauterine gestation is present. Presentation: Vertex Placenta: Placental position is anterior, without previa. Amniotic fluid index: 13 cm, within normal limits for gestational age. heart rate: 157 beats per minute. Maternal cervical canal: Closed biometrics: Estimated gestational age from initial scan: 21 weeks 6 days Other: Echogenic focus within the left ventricle is again identified. Previous left lower extremity d eformity is not able to be identified. IMPRESSION: Single live intrauterine with ultrasound gestational age of 21 weeks 6 days. Persistent echogenic focus within the left ventricle. Continued interval follow-up as well as genetic testing as appropriate is recommended. Previous left lower extremity deformity is unable to be revisualized. Reviewed by: Cori Gann MD on 12/05/2022 1:22 PM PDT Approved by: Cori Gann MD on 12/05/2022 1:22 PM PDT Station ID: [id number]
== END 2022-12-04 22:31 | disposition home or self-care (01) ==
LOC: DI 22:30
PROVIDERS: ATTEND Obstetrics & Gynecology
DX: O09.42 Supervision of pregnancy with grand multiparity, second trimester (principal); Z3A.21 21 weeks gestation of pregnancy

== ENCOUNTER 2023-01-12 10:47 | Outpatient (CLI) | payer BC ==
[2023-01-12 11:59] LABS: HCT - HEMATOCRIT 38.7 % (37.0-47.0); HGB - HEMOGLOBIN 12.6 g/dL (12.0-16.0); MEAN CORPUSCULAR HEMOGLOBIN 29.9 pg (27.0-31.0); MEAN CORPUSCULAR HGB CONC 32.6 g/dL (32.0-36.0); MEAN CORPUSCULAR VOLUME 91.9 fL (81.0-99.0); MEAN PLATELET VOLUME 9.3 fL (7.9-10.8); RED BLOOD COUNT 4.21 10^6/uL (4.20-5.40); RED CELL DISTRIBUTION WIDTH 12.4 % (12.0-15.0); WHITE BLOOD COUNT 10.5 x10^3/uL (4.8-10.8)
== END 2023-01-12 10:48 | disposition home or self-care (01) ==
LOC: LAB 10:47
PROVIDERS: ATTEND Obstetrics & Gynecology
DX: O09.42 Supervision of pregnancy with grand multiparity, second trimester (principal); Z3A.27 27 weeks gestation of pregnancy
CPT/HCPCS: 36415; 82950; 85027

== ENCOUNTER 2023-02-04 12:45 | Outpatient (CLI) | payer BC ==
--- NOTE | 2023-02-04 13:49 | Ultrasound Report ---
PROCEDURE: OB F/U or Repeat INDICATIONS: UTERINE SIZE DATE DISCREPENCY OUTSIDE/PRIOR DATING DATA: Last menstrual period (LMP): 07/01/2022. LMP-based estimated date of delivery (TOYIN): 04/08/2023. First dating scan (date and location): 09/05/2022. Estimated date of delivery (TOYIN) from first dating scan: 04/10/2023. The below data below was generated using the ultrasound TOYIN of 04/10/1944 TECHNIQUE: Real-time scanning was performed of the fetus, with image documentation and biometric measurements. Endovaginal scanning: Not performed. COMPARISON: Ultrasound 12/04/2022 FINDINGS: General: A single living intrauterine gestation is present. Presentation: Breech Placenta: Placental position is anterior, without previa. Amniotic fluid index: 10 cm, within normal limits for gestational age. heart rate: 153 beats per minute. Maternal cervical canal: 4.6 cm long; normal length is 2.5 cm or more. biometrics: Biparietal diameter: 6.8 cm, 27 weeks 4 days Head circumference: 28.5 cm, 31 weeks 2 days Abdominal circumference: 26.1 cm, 30 weeks 2 days Femur length: 5.5 cm, 20 weeks 1 day Estimated gestational age from initial scan: 30 weeks 5 days Composite gestational age from present scan: 29 weeks 4 days Estimated weight and percentile: 1458 g, 13.6 percentile Measurement variability in biometric dating: +/- 10 days from 12-20 weeks gestation, +/- 2 weeks from 20-30 weeks gestation, +/- 3 weeks at 30 weeks gestation or more. Other: Echogenic focus within the left ventricle is again identified. IMPRESSION: 1.Single live intrauterine with ultrasound gestational age of 20 weeks and 4 days. 2.Persistent echogenic focus within the left ventricle. Continued interval follow-up and genetic test ing as appropriate is recommended. Reviewed by: Yunior Post MD on 02/04/2023 1:48 PM PDT Approved by: Yunior Post MD on 02/04/2023 1:48 PM PDT Station ID: [id number]
== END 2023-02-04 12:46 | disposition home or self-care (01) ==
LOC: DI 12:45
PROVIDERS: ATTEND Obstetrics & Gynecology
DX: O26.843 Uterine size-date discrepancy, third trimester (principal); Z3A.29 29 weeks gestation of pregnancy

== ENCOUNTER 2023-02-15 07:39 | Outpatient (CLI) | payer BC ==
[2023-02-15 08:02] VITALS: BP 123/62
--- NOTE | 2023-02-15 09:10 | PROVIDER PROGRESS NOTE ---
- HPI Chief Complaint: Decreased movement Current : Current EDU 04/08/23 Gestation 32 Weeks and 4 Days 7 Para 5 Vital Signs Temperature 98.4 F 02/15/23 07:51 Heart Rate 93 02/15/23 07:51 Respiratory Rate 16 02/15/23 07:51 Blood Pressure 123/62 02/15/23 07:51 Temperature 98.4 F 02/15/23 07:51 Heart Rate 93 02/15/23 07:51 Respiratory Rate 16 02/15/23 07:51 Blood Pressure 123/62 02/15/23 07:51 O2 Saturation If not protocol: Oxygen Flow, liters/minute 32yo presents at 32w4d gestation with decreased movement overnight and this morning medically uncomplicated no VB, no ctx, no LOF upon arrival she started to feel baby move and once eating breakfast NST reactive OK to D/C home has appt on - Exam VSS NAD Conjunctiva pink, pale sclera CTAB, no increased work of breathing Abd soft, NT, ND, visibly gravid at term EFM: 130 mod danny + A cells no D cells, reactive [place]: acontractile Cx: deferred Ext: neg CCE - Procedures OB Procedure Performed: NST Diagnosis/Indication for NST: Decreased movement NST Procedure: NST Procedure Start Date 02/15/23 Start Time 07:46 Stop Time 08:45 Vibroacoustic Stimulation Used No Patient States Movement No 135 mod danny + A cells no D cells reactive Service Date of procedure: 02/15/23 Procedure Details: reactive reassuring precautions reviewed OK to D/C home.
== END 2023-02-15 09:15 | disposition home or self-care (01) ==
LOC: WFO 07:39 → FBP 07:42 → WFO 09:15
PROVIDERS: ATTEND Obstetrics & Gynecology
DX: O36.8130 Decreased fetal movements, third trimester, not applicable or unspecified (principal); Z3A.32 32 weeks gestation of pregnancy
CPT/HCPCS: 59025; 99213

== ENCOUNTER 2023-03-05 10:48 | Outpatient (CLI) | payer BC ==
--- NOTE | 2023-03-05 17:04 | Ultrasound Report ---
PROCEDURE: OB F/U or Repeat INDICATIONS: OBESITY OUTSIDE/PRIOR DATING DATA: Last menstrual period (LMP): 07/02/2022. LMP-based estimated date of delivery (TOYIN): 04/08/2023. First dating scan (date and location): 09/05/2022. Estimated date of delivery (TOYIN) from first dating scan: 04/08/2023. The below data below was generated using the working TOYIN of 04/08/2023 TECHNIQUE: Real-time scanning was performed of the fetus, with image documentation and biometric measurements. Endovaginal scanning: Not performed. COMPARISON: None. FINDINGS: General: A single living intrauterine gestation is present. Presentation: Cephalic Placenta: Placental position is anterior, without previa. Amniotic fluid index: 15.7 cm, 60% for gestational age. heart rate: 150 beats per minute. Maternal cervical canal: 3.5 cm long; normal length is 2.5 cm or more. biometrics: Biparietal diameter: 8.4 cm, 33 week 4 day Head circumference: 31.1 cm, 34 week 6 day Abdominal circumference: 30.6 cm, 34 week 4 day Femur length: 6.4 cm, 33 week 0 day Estimated gestational age from initial scan: 35 week 1 day Composite gestational age from present scan: 34 week 0 day Estimated weight and percentile: 2338 g, 90.3 percentile Measurement variability in biometric dating: +/- 10 days from 12-20 weeks gestation, +/- 2 weeks from 20-30 weeks gestation, +/- 3 weeks at 30 weeks gestation or more. Other: Not applicable. IMPRESSION: Single live intrauterine consistent with 34 week 0 day gestation by current ul trasound and 35 week 1 day by initial ultrasound Reviewed by: John Corado MD on 03/05/2023 4:03 PM KEITHDT Approved by: John Corado MD on 03/05/2023 4:03 PM AKDT Station ID: [id number]
== END 2023-03-05 10:49 | disposition home or self-care (01) ==
LOC: DI 10:48
PROVIDERS: ATTEND Obstetrics & Gynecology
DX: O99.213 Obesity complicating pregnancy, third trimester (principal); Z3A.34 34 weeks gestation of pregnancy

== ENCOUNTER 2023-03-18 08:00 | Outpatient (CLI) | payer BC | END 2023-03-18 23:59 | disposition home or self-care (01) | LOC: LAB.WC 08:00 | PROVIDERS: ATTEND Obstetrics & Gynecology | DX: Z36.85 Encounter for antenatal screening for Streptococcus B (principal) | CPT/HCPCS: 87797 ==

== ENCOUNTER 2025-04-14 13:39 | Inpatient (IN) ==
[2025-04-14] MEDS ORDERED: SODIUM CHLORIDE FLUSH 0.9% 10 ML SYRINGE IVP PRN ×2 (14:20→15:56)
[2025-04-14] MEDS ORDERED: IBUPROFEN 600 MG TABLET PO PRN (14:20)
[2025-04-14] MEDS ORDERED: ONDANSETRON ODT 4 MG TABLET TL PRN (14:20)
--- NOTE | 2025-04-14 14:20 | HISTORY & PHYSICAL EXAMINATION ---
Admit History Smoking Status: Never smoker Other Maternal History Other Maternal History: Patient is a 35-year-old -0-2-6 at 38 weeks 3 days gestation presenting for induction of labor secondary to IUGR.. She has good movement. Denies loss of fluid. No TURK/BV or RUQP. No vaginal bleeding. Denies nausea and vomiting. Denies urinary urgency or dysuria. All other symptoms reviewed and were negative except per HPI. Course LMP: 07/22/2024 TOYIN by LMP: 04/28/2025 Initial US Date of 09/21/2024, US Age 9 weeks 2 days, TOYIN by ultrasound: 04/24/2025 Final TOYIN: 04/28/2025 by LMP consistent with 9-week ultrasound Grand multiparity: -[ ] Type and cross for delivery IUGR: Conflicting ultrasounds, one showing severe IUGR, the following week normal. Both with normal dopplers. Discussed complications of conflicting data and that 38 weeks is a reasonable time. Patient also on the same page. AMA: Declined NIPT No second indication for LDASA. [ ] Discuss surveillance at 36 weeks Pre- Weight: 150 BMI: 25.7 Blood type: O+ Antibody: negative CBC: H/H: 14.8/43.7 plt 249 RUB: immune VZV: immune HBsAg: neg HepC: NR RPR/AB-EIA: NR HIV: NR PAP: 03/2021-normal GC/CT: collected 10/17 neg HSV: denies in self and partner Genetic testing:not interested . aFP: Ordered 11/09 Covid: 04/06/25 Flu: 04/06/25 FAS: 12/19 Placenta: posterior w/o previa Cord: 3VC ROCK: WNL EFW: 410g 35th% 50gm OGCT: 133 3HR GTT: TDAP: 02/03/25 Breast Pump: has one 3rd trimester CBC: 12.9/38.9. Platelets- 216 RPR: NR RSV 03/27/25 GBS:04/06/25 Negative Delivery plan: Contraception: Partner vasectomy Meds/Allgy Home Medications Ambulatory Orders Medication Instructions Recorded Confirmed vits no.126-ferrous fum 1 tab PO DAILY 04/14/25 28 mg iron-folic acid 800 mcg tablet (Classic ) sertraline 100 mg tablet 100 mg PO DAILY 04/14/2510/04 Allergies Allergies Allergy/AdvReac Type Severity Reaction Status Date / Time No Known Drug Allergies Allergy Verified 04/13/25 13:04 PFSH Active Problems All Active Problems (Updated 04/14/25 @ 16:46 by Saud Painting MD) 38 weeks gestation of (Acute) IUGR (intrauterine growth restriction) (Acute) Small for dates infant in prior , currently in third trimester (Acute) Supervision of elderly multigravida (Acute) Anxiety (Acute) Medical History Medical History Missed ab (06/2024) (normal spontaneous vaginal delivery) x 6 Surgical History Surgical History History of colonoscopy H/O dilation and curettage Family History Family History (Updated 09/14/24 @ 10:46 by Farida Noland RN) Father High blood pressure Sister Asthma Paternal grandfather Cancer Paternal grandmother Cancer Maternal grandmother Alzheimers disease Maternal grandfather CVA (cerebral vascular accident) Brother Epilepsy Son Asthma Social History Social History (Updated 03/02/25 @ 13:12 by Saud Painting MD) Smoking Status: Never smoker Do you dip or chew tobacco?: No Patient requests smoking cessation consult: No Initiate information on smoking cessation: No Do you feel safe in your home environment?: Yes History of physical, verbal, emotional, or financial abuse?: No Review of Systems Status of ROS: 10 or more systems reviewed and unremarkable except as noted in history and below Physical Other Notes Labor Progress Note/Additional Text: General: Alert, oriented, no acute distress Head: Normal cephalic atraumatic Eyes: PERRLA, extraocular motions intact. Respiratory: Normal rate of respiration. No accessory muscle use, normal respiratory effort. Abdomen: Gravid, nontender, nondistended Extremities: Normal range of motion Neuro: Oriented x3. Normal movements Psych: Appropriate mood and affect. Normal judgment and insight SVE: 4/50/-3 FHT: 140 BPM baseline, moderate variability, accelerations present, no decelerations. Reactive NST [place]: Irritable Plan for Labor Plan For Labor I expect patient to be DC'd or transferred within 96 hours.: Yes Conclusion/Plan Problem List (1) IUGR (intrauterine growth restriction): Plan: -Plan for induction and labor secondary IUGR. Reactive NST today. -Request amniotomy after epidural. Would like to start oxytocin prior. - Type and cross due to grand multiparity. - GBS negative. (2) 38 weeks gestation of : (3) Supervision of elderly multigravida: Qualifiers: Trimester: third trimester Qualified Code(s): O09.523 - Supervision of elderly multigravida, third trimester Lab Results 04/14/25 14:50
--- NOTE | 2025-04-14 14:51 | PHARMACY PROGRESS NOTE ---
Best Possible Medication History Admit Date and Time: 04/14/25 1420 Home Medications Medication Instructions Recorded Confirmed Type vits no.126-ferrous fum 1 tab PO DAILY 04/14/25 History 28 mg iron-folic acid 800 mcg tablet (Classic ) sertraline 100 mg tablet 100 mg PO DAILY 04/14/2510/04 History Processed by: Nursing Medications reviewed in ED?: No Medication History completed: Yes Patient Interview: Completed [facility] Statement: As the person ultimately responsible for medication therapy, providers are able to order a medication from an existing home medication list in [facility] via the "Reconcile Routine" prior to Confirmation of that medication by applications support engineer. Such practice is discouraged except when the physician, in their clinical judgment, deems that a medical need exists for a medication without regard to previous use.
[2025-04-14] MEDS: OXYTOCIN/SODIUM CHLORIDE 500 ML IV SCH (15:07)
[2025-04-14 15:10] LABS: HCT - HEMATOCRIT 38.2 % (37.0-47.0); HGB - HEMOGLOBIN 12.8 g/dL (12.0-16.0); MEAN PLATELET VOLUME 11.8 fL (7.9-10.8); NRBC ABSOLUTE COUNT (AUTO) 0.00 x10^3/uL; NUCLEATED RED BLOOD CELLS AUTO 0.0 /100WBC; PLT - PLATELET COUNT 184 10^3/uL (130-450); RED CELL DISTRIBUTION WIDTH 13.0 % (12.0-15.0)
[2025-04-14] MEDS ORDERED: DOCUSATE SODIUM 100 MG CAPSULE PO PRN (15:56)
[2025-04-14] MEDS ORDERED: LABETALOL 20 MG/4 ML SYRINGE IVP PRN ×3 (15:56)
[2025-04-14] MEDS ORDERED: CALCIUM CARBONATE CHEW 500 MG TABLET PO PRN ×2 (15:56→18:08)
[2025-04-14] MEDS ORDERED: CARBOPROST TROMETHAMINE 250 MCG/ML VIAL IM PRN (15:56)
[2025-04-14] MEDS ORDERED: FAMOTIDINE 20 MG/2 ML VIAL IVP PRN (15:56)
[2025-04-14] MEDS ORDERED: METOCLOPRAMIDE 10 MG TABLET PO PRN (15:56)
[2025-04-14] MEDS ORDERED: TERBUTALINE 1 MG/ML VIAL SUBQ PRN (15:56)
[2025-04-14] MEDS ORDERED: fentaNYL 100 MCG/2 ML VIAL IVP PRN (15:56)
[2025-04-14] MEDS ORDERED: OXYTOCIN 10 UNIT/ML VIAL IM PRN (15:56)
[2025-04-14] MEDS ORDERED: hydrALAZINE INJ 20 MG/ML VIAL IVP PRN (15:56)
[2025-04-14] MEDS ORDERED: METHYLERGONOVINE 0.2 MG/ML VIAL IM PRN (15:56)
[2025-04-14] MEDS ORDERED: LACTATED RINGERS 1,000 ML IV PRN (15:56)
[2025-04-14] MEDS ORDERED: SODIUM CHLORIDE FLUSH 0.9% 10 ML SYRINGE IVP SCH ×2 (16:00→17:00)
[2025-04-14] MEDS ORDERED: ROPIVACAINE 0.2% 200 MG/100 ML BAG EP ONE (16:27)
[2025-04-14] MEDS ORDERED: LIDOCAINE 2%-EPI 1:100000 20 ML MDV ONE (16:27)
[2025-04-14] MEDS ORDERED: ePHEDrine 50 MG/ML VIAL IVP PRN (16:32)
[2025-04-14] MEDS ORDERED: ONDANSETRON 4 MG/2 ML VIAL IVP PRN ×2 (16:32→18:08)
[2025-04-14] MEDS ORDERED: NALOXONE 0.4 MG/ML VIAL IVP PRN (16:32)
[2025-04-14] MEDS ORDERED: ROPIVACAINE 0.2% 200 MG/100 ML BAG EP PRN (16:32)
--- NOTE | 2025-04-14 16:32 | ANESTHESIA PROCEDURE NOTE ---
Pre-Anesthesia VS, & Labs Diagnosis Surgical Diagnosis:: Active Labor Procedure Procedure: Vaginal delivery NPO Last Fluid Intake: Clear liquids during labo Is Patient ?: Yes Lab Results Current Lab Results: Laboratory Tests 04/14/25 14:50: WBC 10.8, RBC 4.31, Hgb 12.8, Hct 38.2, MCV 88.6, MCH 29.7, MCHC 33.5, RDW 13.0, Plt Count 184, MPV 11.8 H, Neut # (Auto) 8.0 H, Lymph # (Auto) 2.2, [place] # (Auto) 0.6, Eos # (Auto) 0.1, Baso # (Auto) 0.0, Absolute Nucleated RBC 0.00, Nucleated RBC % 0.0 Lab results reviewed: Yes 04/14/25 14:50 Meds/Allgy Home Medications Ambulatory Orders Medication Instructions Recorded Confirmed vits no.126-ferrous fum 1 tab PO DAILY 04/14/25 28 mg iron-folic acid 800 mcg tablet (Classic ) sertraline 100 mg tablet 100 mg PO DAILY 04/14/2510/04 Allergies Allergies Allergy/AdvReac Type Severity Reaction Status Date / Time No Known Drug Allergies Allergy Verified 04/13/25 13:04 PFSH Active Problems All Active Problems 38 weeks gestation of (Acute) IUGR (intrauterine growth restriction) (Acute) Small for dates infant in prior , currently in third trimester (Acute) Supervision of elderly multigravida (Acute) Anxiety (Acute) Medical History Medical History Missed ab (06/2024) (normal spontaneous vaginal delivery) x 6 Surgical History Surgical History History of colonoscopy H/O dilation and curettage Family History Family History (Updated 09/14/24 @ 10:46 by Farida Noland RN) Father High blood pressure Sister Asthma Paternal grandfather Cancer Paternal grandmother Cancer Maternal grandmother Alzheimers disease Maternal grandfather CVA (cerebral vascular accident) Brother Epilepsy Son Asthma Social History Social History (Updated 03/02/25 @ 13:12 by Saud Painting MD) Smoking Status: Never smoker Do you dip or chew tobacco?: No Patient requests smoking cessation consult: No Initiate information on smoking cessation: No Do you feel safe in your home environment?: Yes History of physical, verbal, emotional, or financial abuse?: No POLST POLST CPR Status: Attempt Resuscitation (CPR) Level of Medical Intervention: Full Treatment Anesthesia Exam (Expanded) Exam General: Alert, Oriented x3 and Cooperative Dental: WNL Mouth Openin Fingerbreadth Neck Mobility: Normal Mallampati classification: II Thyromental Distance: 4-6 cm Plan Plan Anesthesia Type: Epidural Consent for Procedure(s) Verified and Reviewed: Yes Code Status: Attempt Resuscitation ASA Classification ASA classification: 2-Mild systemic disease Is this case an emergency?: No
[2025-04-14] MEDS ORDERED: SIMETHICONE CHEW 80 MG TABLET PO PRN (18:08)
[2025-04-14] MEDS ORDERED: WITCH HAZEL/GLYCERIN 1 PAD TOP PRN (18:08)
--- NOTE | 2025-04-14 18:12 | DELIVERY NOTE ---
Delivery Note Labor Labor: positive Induced by ARM and Induced by oxytocin Presentation Presentation: positive Vertex Nuchal Cord Nuchal Cord: positive Reduced Amniotic Fluid Description Amniotic Fluid Description: positive Clear Laceration Laceration: positive 1st degree Suture Suture Type: positive Vicryl Suture Size: positive 3-0 [place]: positive Placed in direct skin contact with mother, Bulb syringe and [place] used [place] sex: positive Male Cord Cord: positive 3 vessels Placenta Placenta: positive Intact Estimated Blood Loss Estimated Blood Loss (in cc): 350 Post Delivery Events Post Delivery Events: positive No post delivery events Delivery Comments (Free Text/Narrative) Delivery Comments (Free Text/Narrative): Preoperative Diagnoses 38 weeks gestation IUGR Advanced maternal age Grand multiparity Postoperative Diagnoses Same Delivery of live garcia Status post spontaneous vaginal delivery Summary Patient presented at 38 weeks for induction of labor secondary to IUGR. She requested epidural prior to amniotomy, so oxytocin was started. Cervix was favorable. Epidural was placed and amniotomy performed. She progressed quickly until complete and ready to push. Delivery Summary: Patient was placed in the dorsal lithotomy position. Upon maternal pushing the head was delivered atraumatically followed by the anterior shoulder, posterior shoulder, then the remainder of the infant's body. Nuchal cord was reduced. A male was delivered with APGARS of 8 at 1 minute and 8 at 5 minutes. The was placed on its mother's chest . After the cord finished pulsating, the umbilical cord was clamped times two and cut. The placenta delivered intact with three vessel cord. Placenta [was not] sent to pathology. Oxytocin was administered. Uterine massage was performed until uterus was deemed firm. Upon inspection of perineum, a small first-degree midline laceration was noted and repaired with a [id number] stitch of 3-0 Vicryl. Upon re-inspection the patient was hemostatic. Uterus again massaged and found to be firm. Needle and sponge counts were correct. Patient was stable and allowed to recover in L&D room. Infant was stable and remained in room with mother. weight is pending at this time.
[2025-04-14] MEDS ORDERED: LACTATED RINGERS 1,000 ML IV SCH (19:00)
[2025-04-14] MEDS: TRANEXAMIC ACID IN NACL 1,000 MG/100 ML BAG IV PRN (19:11)
[2025-04-14] MEDS: IBUPROFEN 600 MG TABLET PO SCH (19:43)
[2025-04-14] MEDS: OXYTOCIN/SODIUM CHLORIDE 500 ML IV PRN (19:43)
[2025-04-14] MEDS: ACETAMINOPHEN 500 MG TABLET PO SCH (20:01)
[2025-04-14 23:55] VITALS: O2SAT 98
[2025-04-15] MEDS: ACETAMINOPHEN 500 MG TABLET PO SCH (06:25)
--- NOTE | 2025-04-15 10:14 | Discharge Summary ---
Discharge Summary Admit Date: 04/14/25 Discharge Date: 04/15/25 Discharging Provider: Billy Marroquin MD [facility] History of Present Illness: Admission Diagnosis: - SIUP at 38w3d - Possible IUGR Discharge Diagnosis: - Same, delivered Procedures: IOL Hospital Course: Pablo is a 35 yo who presented at 38w3d for IOL in the setting of possible IUGR. Recent prior US had shown IUGR, but then repeat the following week was performed and normal. She was 4cm on presentation, and elected for early epidural placement. She was started on pitocin and then AROM performed after epidural. She progressed quickly thereafter and has a . She had a fmal first-degree laceration which was repaired. EBL at time of delivery was 350cc. She did have some atony in the few hours after delivery and received misprostol and TXA, total EBL 700cc. She did well , had no further heavy bleeding, and was discharged home on PPD#1. Condition on Discharge: SUBJECTIVE: day 1 She feels well. Pain is well controlled with current medications. Does report having some increased cramping/discomfort in her rectum area last night after misoprostol was given. The baby is doing well. Baby is feeding via bottle/formula. She may try to breastfeed some, but reports it was very painful in some of her other pregnancies and that made it difficult to whitt with baby. She is ambulating well, tolerating normal diet, urinating without difficulty. Lochia is reported as normal. OBJECTIVE: Vital signs reviewed GENERAL: NAD CHEST: non labored respirations ABD: soft, non tender, fundus firm EXT: no lower extremity edema; No evidence of DVT LAB & IMAGING STUDIES: See below PLAN: Plan for discharge home with follow up in clinic in 1 week ([facility] odonnell). Reviewed home care instructions and medications. Patient counseled regarding signs and symptoms of infection, excessive bleeding, vaginal rest and activity restrictions. Discussed that additional support is available in our clinic if needed if she decides to try . ALLERGIES Allergies Allergy/AdvReac Type Severity Reaction Status Date / Time No Known Drug Allergies Allergy Verified 04/13/25 13:04 MEDICATIONS Ambulatory Orders Medication Instructions Recorded Confirmed vits no.126-ferrous fum 1 tab PO DAILY 04/14/25 28 mg iron-folic acid 800 mcg tablet (Classic ) sertraline 100 mg tablet 100 mg PO DAILY 04/14/2510/04 PHYSICAL EXAM AT DISCHARGE Vital Signs: Vital Signs x48h Temp Pulse Resp BP Pulse Ox 04/15/25 06:57 36.7 C 66 16 114/68 98 04/15/25 02:35 36.8 C 61 18 122/61 98 LABS 04/14/25 14:50 TIME SPENT Time Spent in Discharge (Minutes): 20 Discharge Plan Discharge Patient Disposition: Home, Self Care Prescriptions: Continued sertraline 100 mg tablet 100 mg PO DAILY Classic 28 mg iron- 800 mcg tablet 1 tab PO DAILY Print Language: Kinyarwanda Patient Instructions: After a Vaginal , Breast Care After Follow-up Care: Saud Painting MD [Provider Admit Priv/Credential, Obstetrics/Gynecology] Referral Note: 1 week visit. Vitals documented within 30 minutes of discharge?: Yes (36.8, 75, 16, 110/62)
[2025-04-15 13:42] VITALS: BP 116/65; TEMP 98.2
--- NOTE | 2025-04-15 19:33 | Labor Flowsheet ---
Labor Flowsheet Datetime Report Generated by CPN: 04/15/2025 19:32 Datetime: 04/15/2025 09:21 VITAL SIGNS NBP Sys/Thais/Mean (mmHg): 108 : 56 : 69 Pulse: 70 Datetime: 04/15/2025 02:20 SpO2 (%): 97 Datetime: 04/14/2025 20:00 Stage of : Recovery Datetime: 04/14/2025 19:45 COMMUNICATION LaborFlag: OB Triage Datetime: 04/14/2025 18:46 Membranes Ruptured Date/Time: 04/14/2025 16:50 Amniotic Fluid Odor: Normal Datetime: 04/14/2025 17:52 UTERINE ACTIVITY Monitor Mode: External Frequency (min): 2-4 Quality: Moderate Duration (sec): 40-80 Pattern: Normal: <= 5 Contractions in 10 Minutes Resting Tone (Palpate): Relaxed ASSESSMENT A Monitor Mode: Telemetry FHR Baseline Rate : 145 Variability: Moderate 6-25 bpm Decelerations: Variable Datetime: 04/14/2025 17:46 STAGE 2 Pushing Position: Pushing with Contractions Pushing Progress: Descent with Pushing Datetime: 04/14/2025 17:41 VAGINAL EXAM Dilatation (cm): 10.0 Effacement (%): 100 Exam by: Saud Mert, MD Datetime: 04/14/2025 17:30 FHR Baseline Changes: No Baseline Change Accelerations: 15X15 Datetime: 04/14/2025 17:25 PATIENT CARE Patient Position/Activity: High Fowlers Datetime: 04/14/2025 17:00 Temperature (C): 37.1 Temperature Route: Oral Datetime: 04/14/2025 16:50 Membrane Status: Ruptured Membranes Rupture Method: Artificial Amniotic Fluid Color: Clear Amniotic Fluid Amount: Small Datetime: 04/14/2025 16:49 Station: -2 Datetime: 04/14/2025 16:00 ANESTHESIA Anesthesia Plans: Epidural Epidural Procedure: Test Dose Datetime: 04/14/2025 15:54 Epidural Positioning: Sitting
== END 2025-04-15 18:30 | disposition home or self-care (01) | DRG 807 ==
LOC: WFO 13:39 → FBP 13:52
PROVIDERS: ADMIT Obstetrics & Gynecology; ATTEND Obstetrics & Gynecology